=== PATIENT | male | born 1960 | race Two or more races ===

== ENCOUNTER 2020-12-21 15:23 | Inpatient (IN) | payer BC ==
[~2020-12-21] VITALS: Ht 172.7 cm; Wt 90.9 kg
[2020-12-21] MEDS ORDERED: vancomycin/NS 1 GM ADD-VANTAGE 250 ML IV ONE (19:30)
[2020-12-21] MEDS ORDERED: piperacillin/tazo 3.375gm/50ml 50 ML IV ONE (19:30)
[2020-12-21] MEDS ORDERED: METF500T PO (19:44)
[2020-12-21] MEDS ORDERED: [UNRECOGNIZED DRUG - CODE] PO (19:44)
[2020-12-21] MEDS ORDERED: DAPA5TAB PO (19:44)
[2020-12-21] MEDS ORDERED: BUPR1FIL3 SL (19:44)
[2020-12-21 19:47] LABS: BASOPHILS # (AUTO) 0.1 X10'3 (0-0.2); BASOPHILS % (AUTO) 0.7 % (0-1); EOSINOPHILS # (AUTO) 0.2 X10'3 (0-0.9); EOSINOPHILS % (AUTO) 2.2 % (0-6); HEMATOCRIT 42.8 % (42.0-52.0); HEMOGLOBIN 14.1 g/dl (14.0-17.9); LYMPHOCYTES % (AUTO) 34.3 % (21-51); MEAN CORPUSCULAR HGB CONC 32.9 g/dL (33.0-36.5); MEAN CORPUSCULAR VOLUME 88.1 FL (78-98); MEAN PLATELET VOLUME 9.8 FL (7.4-10.4); MONOCYTES # (AUTO) 0.6 X10'3 (0-0.9); MONOCYTES % (AUTO) 7.2 % (2-12); NEUTROPHILS # (AUTO) 4.8 X10'3 (1.8-7.7); NEUTROPHILS % (AUTO) 55.6 % (42-75); PLATELET COUNT 133 X10'3 (140-440); RED BLOOD COUNT 4.86 X10'6 (4.70-6.10); RED CELL DISTRIBUTION WIDTH 13.1 % (11.5-14.5); WHITE BLOOD COUNT 8.7 X10'3 (4.5-11.0)
[2020-12-21 19:48] LABS: ALANINE AMINOTRANSFERASE 24 U/L (12-78); ALBUMIN 3.7 G/DL (3.4-5.0); ALBUMIN/GLOBULIN RATIO 0.8 (1.1-1.5); ALKALINE PHOSPHATASE 130 IU/L (46-116); ANION GAP 8 (8-16); ASPARTATE AMINO TRANSFERASE 15 U/L (10-37); BILIRUBIN,TOTAL 0.6 MG/DL (0.1-1.0); BLOOD UREA NITROGEN 16 MG/DL (7-18); BUN/CREATININE RATIO 19.8 (5.4-32.0); CALCIUM 9.4 MG/DL (8.5-10.1); CHLORIDE 102 MMOL/L (99-107); CREATININE 0.81 MG/DL (0.60-1.10); GLUCOSE 135 MG/DL (70-104); MAGNESIUM 2.2 MG/DL (1.5-2.4); POTASSIUM 3.6 MMOL/L (3.5-5.1); SODIUM 139 MMOL/L (135-145); TOTAL CARBON DIOXIDE 29.1 MMOL/L (24-32); TOTAL PROTEIN 8.6 G/DL (6.4-8.2); eGFR > 90 ML/MIN
--- NOTE | 2020-12-21 19:51 | NUR ---
Pt hungry and thirsty, Dr Patiño states he can eat and drink. Gave him a liter of ice water to BS and a sandwich and low fat milk carton.
--- NOTE | 2020-12-21 21:50 | NUR ---
PATIENT'S 10 YEAR OLD DAUGHTER IS AT BEDSIDE AND CAME TO THE ER WITH HER FATHER THE PATIENT. THE PATIENT RECENTLY MOVED UP TO [place] ABOUT 2 WEEKS AGO. THE DAUGHTER'S MOTHER LIVES IN [place] BUT HER MOTHER JUST FLEW TO [place] TO BE WITH HER MOTHER GUERDA FROM CANCER. THE DAUGHTER'S SISTER LIVES IN [place] BUT DOES NOT HAVE A CAR. 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
--- NOTE | 2020-12-21 23:45 | NUR ---
Pt has been doing well. No c/o anything. His sister will be here around 2-3 to take his daughter home.
[2020-12-21 23:58] LABS: CLARITY,URINE CLEAR (Clear); COLOR,URINE YELLOW (Yellow); GLUCOSE, URINE 500 mg/dl (Neg); KETONES,URINE NEGATIVE (Neg); LEUKOCYTE ESTERASE ,URINE NEGATIVE (Neg); NITRITES, URINE NEGATIVE (Neg); OCCULT BLOOD,URINE TRACE-INTACT (Neg); PH,URINE 6.5 (4.8-8.0); PROTEIN,URINE NEGATIVE (Neg)
[2020-12-22 00:02] LABS: UA COLLECTION TYPE VOIDED
[2020-12-22 00:05] LABS: BACTERIA,URINE NONE SEEN /HPF (Neg); RBC,URINE 0-2 /HPF (0-2); WBC,URINE NONE SEEN /HPF (0-4)
[2020-12-22 00:06] LABS: SQUAMOUS EPITHELIAL CELL,UR NONE SEEN /LPF (FEW)
[2020-12-22] MEDS ORDERED: morphine 2 MG/ML inj. syringe IV PRN ×2 (00:30)
[2020-12-22] MEDS ORDERED: mag hydrox/Alum hydrox/simeth 30ml oral suspension PO PRN (00:30)
[2020-12-22] MEDS ORDERED: acetaminophen 325mg tablet PO PRN (00:30)
[2020-12-22] MEDS ORDERED: magnesium hydroxide 30ml (MOM) UD suspension PO PRN (00:30)
[2020-12-22] MEDS ORDERED: ondansetron/PF 4mg/2ml inj IV PRN (00:30)
[2020-12-22] MEDS ORDERED: potassium Cl 40MEQ/1/2NS 520ml 520 ML IV PRN ×2 (00:30)
[2020-12-22] MEDS ORDERED: potassium Cl 20 mEq SR tablet PO PRN ×2 (00:30)
[2020-12-22] MEDS ORDERED: insulin Lispro (HumaLOG) vial - multi-dose SQ SCH (00:35)
[2020-12-22] MEDS ORDERED: MESSAGE TO PHARMACY PO ONE (00:35)
[2020-12-22] MEDS ORDERED: dextrose 50%-water 50ml dispensing syringe IV PRN ×2 (00:35)
[2020-12-22] MEDS ORDERED: glucagon, human recombinant 1mg kit SUBCUT PRN (00:35)
[2020-12-22] MEDS ORDERED: dextrose ORAL solution 15 GM/59 ML bottle PO PRN ×2 (00:35)
[2020-12-22 01:42] LABS: HEMOGLOBIN A1C 7.8 % (4.5-6.2)
--- NOTE | 2020-12-22 02:30 | NUR ---
FAMILY HERE TO GET CHILD.
--- NOTE | 2020-12-22 03:38 | NUR ---
PT CURRENTLY ASLEEP
--- NOTE | 2020-12-22 06:04 | NUR ---
PT SLEEPING, WILL ALLOW HIM TO SLEEP. RR 16
[2020-12-22] MEDS ORDERED: K and/or MAG REPLACEMENT MC SCH (08:00)
[2020-12-22] MEDS ORDERED: buprenorphine/naloxone 8MG-2MG SUBlingual film SL SCH (08:00)
[2020-12-22] MEDS: heparin, porcine 5000 units/ml vial SQ SCH ×3 (08:04→21:49)
[2020-12-22] MEDS: piperacillin/tazo 3.375gm/50ml 50 ML IV SCH ×2 (08:05→16:01)
[2020-12-22] MEDS: buprenorphine/naloxone 8MG-2MG SUBlingual film SL SCH (08:17)
--- NOTE | 2020-12-22 08:17 | NUR ---
pharmacy to change supboxone order as currently reflects 1.5 film. Unable to cut film. Tablets to be replaced by film. film being returned
[2020-12-22] MEDS: buprenorphine/naloxone 2-0.5mg sublingual tablet SL SCH (08:26)
[2020-12-22 09:16] LABS: BASOPHILS # (AUTO) 0.1 X10'3 (0-0.2); BASOPHILS % (AUTO) 0.8 % (0-1); EOSINOPHILS # (AUTO) 0.2 X10'3 (0-0.9); EOSINOPHILS % (AUTO) 2.7 % (0-6); HEMATOCRIT 40.8 % (42.0-52.0); HEMOGLOBIN 13.5 g/dl (14.0-17.9); LYMPHOCYTES # (AUTO) 1.9 X10'3 (1.1-4.8); LYMPHOCYTES % (AUTO) 26.4 % (21-51); MEAN CORPUSCULAR HEMOGLOBIN 29.5 PG (27.0-31.0); MEAN CORPUSCULAR HGB CONC 33.1 g/dL (33.0-36.5); MEAN CORPUSCULAR VOLUME 88.9 FL (78-98); MEAN PLATELET VOLUME 9.3 FL (7.4-10.4); MONOCYTES # (AUTO) 0.6 X10'3 (0-0.9); MONOCYTES % (AUTO) 8.3 % (2-12); NEUTROPHILS # (AUTO) 4.4 X10'3 (1.8-7.7); NEUTROPHILS % (AUTO) 61.8 % (42-75); PLATELET COUNT 121 X10'3 (140-440); RED BLOOD COUNT 4.59 X10'6 (4.70-6.10); RED CELL DISTRIBUTION WIDTH 13.7 % (11.5-14.5); WHITE BLOOD COUNT 7.2 X10'3 (4.5-11.0)
[2020-12-22 09:30] LABS: ALANINE AMINOTRANSFERASE 23 U/L (12-78); ALBUMIN 3.2 G/DL (3.4-5.0); ALBUMIN/GLOBULIN RATIO 0.7 (1.1-1.5); ALKALINE PHOSPHATASE 113 IU/L (46-116); ANION GAP 2 (8-16); ASPARTATE AMINO TRANSFERASE 15 U/L (10-37); BILIRUBIN,TOTAL 0.6 MG/DL (0.1-1.0); BLOOD UREA NITROGEN 17 MG/DL (7-18); CALCIUM 9.1 MG/DL (8.5-10.1); CHLORIDE 104 MMOL/L (99-107); CREATININE 0.85 MG/DL (0.60-1.10); GLUCOSE 173 MG/DL (70-104); POTASSIUM 4.1 MMOL/L (3.5-5.1); SODIUM 134 MMOL/L (135-145); TOTAL PROTEIN 7.5 G/DL (6.4-8.2); eGFR > 90 ML/MIN
[2020-12-22] MEDS: VANCOmycin 1250MG/NS 250ml Bag 250 ML IV SCH ×2 (09:38→21:40)
--- NOTE | 2020-12-22 13:30 | NUR ---
ORTHOPEDIST IN TO SPEAK WITH PT
--- NOTE | 2020-12-22 19:22 | NUR ---
1835 Rc'd verbal report from [facility] ED. RN and assumed care of patient when he arrived and placed into 4016. Patient is alert and oriented x4, ambulates without assist and denies pain at this time. vital signs stable and patient oriented to room and call light system.
[2020-12-22 19:30] VITALS: BP 122/71
[2020-12-22] MEDS ORDERED: insulin glargine (Lantus) pen - multi-dose SQ SCH (21:00)
[2020-12-22] MEDS: lactobacillus rhamnosus 10,000 MMU CELLS/CAPSULE PO SCH (21:48)
[2020-12-23] VITALS (8 sets, daily range): BP systolic 96–110; BP diastolic 53–60
[2020-12-23] MEDS: piperacillin/tazo 3.375gm/50ml 50 ML IV SCH ×2 (00:26→08:00)
[2020-12-23 05:40] LABS: ALANINE AMINOTRANSFERASE 21 U/L (12-78); ALBUMIN 2.9 G/DL (3.4-5.0); ALBUMIN/GLOBULIN RATIO 0.7 (1.1-1.5); ALKALINE PHOSPHATASE 100 IU/L (46-116); ANION GAP 8 (8-16); ASPARTATE AMINO TRANSFERASE 14 U/L (10-37); BILIRUBIN,TOTAL 0.4 MG/DL (0.1-1.0); BLOOD UREA NITROGEN 19 MG/DL (7-18); BUN/CREATININE RATIO 21.3 (5.4-32.0); CHLORIDE 106 MMOL/L (99-107); CREATININE 0.89 MG/DL (0.60-1.10); GLUCOSE 141 MG/DL (70-104); POTASSIUM 4.1 MMOL/L (3.5-5.1); SODIUM 141 MMOL/L (135-145); TOTAL CARBON DIOXIDE 27.3 MMOL/L (24-32); TOTAL PROTEIN 7.1 G/DL (6.4-8.2); eGFR 87 ML/MIN
[2020-12-23 05:46] LABS: BASOPHILS # (AUTO) 0.1 X10'3 (0-0.2); EOSINOPHILS # (AUTO) 0.2 X10'3 (0-0.9); EOSINOPHILS % (AUTO) 3.7 % (0-6); HEMATOCRIT 38.4 % (42.0-52.0); HEMOGLOBIN 12.7 g/dl (14.0-17.9); LYMPHOCYTES # (AUTO) 2.2 X10'3 (1.1-4.8); LYMPHOCYTES % (AUTO) 34.2 % (21-51); MEAN CORPUSCULAR HEMOGLOBIN 29.5 PG (27.0-31.0); MEAN CORPUSCULAR HGB CONC 33.1 g/dL (33.0-36.5); MEAN CORPUSCULAR VOLUME 89.2 FL (78-98); MEAN PLATELET VOLUME 9.9 FL (7.4-10.4); MONOCYTES # (AUTO) 0.5 X10'3 (0-0.9); MONOCYTES % (AUTO) 7.7 % (2-12); NEUTROPHILS # (AUTO) 3.4 X10'3 (1.8-7.7); NEUTROPHILS % (AUTO) 53.4 % (42-75); PLATELET COUNT 119 X10'3 (140-440); RED CELL DISTRIBUTION WIDTH 13.6 % (11.5-14.5); WHITE BLOOD COUNT 6.4 X10'3 (4.5-11.0)
--- NOTE | 2020-12-23 06:29 | NUR ---
Problems reprioritized. Patient report given, questions answered & plan of care reviewed with early shift RN.
--- NOTE | 2020-12-23 06:45 | NUR ---
Patient in room ORTHO 4016. I have received report from ALEXIS SANTANA and had the opportunity to ask questions and assume patient care.
[2020-12-23] MEDS ORDERED: BUPIVAcaine/PF 2.5 mg/ml (0.25%) 30ml vial ONE (07:26)
--- NOTE | 2020-12-23 07:55 | NUR ---
ATTEMPTED TO CALL REPORT TO RECOVERY
[2020-12-23] MEDS ORDERED: ketamine 50mg/5ml syringe ONE (07:58)
[2020-12-23] MEDS ORDERED: fentaNYL/PF 50MCG/1 ML 2ML syringe ONE (07:59)
[2020-12-23] MEDS: heparin, porcine 5000 units/ml vial SQ SCH (08:00)
[2020-12-23] MEDS ORDERED: MIDAZolam 1 MG/ML 5ML VIAL ONE (08:00)
[2020-12-23] MEDS: lactobacillus rhamnosus 10,000 MMU CELLS/CAPSULE PO SCH (08:00)
--- NOTE | 2020-12-23 08:29 | NUR ---
Received from OR via BED, accompanied by Anesthesiologist DR OCHOA and report given by Anesthesiologist. PT DROWSY, DENIES PAIN, LEFT FOOT W/SLADE WRAP COVERING INCISION/DRSG CDI. Addendum: 12/23/20 at 0904 by Racquel Samano RN Amended: Links added.
[2020-12-23] MEDS ORDERED: morphine 2 MG/ML inj. syringe IV PRN (08:30)
[2020-12-23] MEDS ORDERED: proCHLORperazine 10 MG/2 ml inj IV PRN (08:30)
[2020-12-23] MEDS ORDERED: morphine 4 MG/ML inj SYRINge IV PRN (08:30)
[2020-12-23] MEDS ORDERED: meperidine/PF 25mg/ml syringe IV PRN ×3 (08:30)
[2020-12-23] MEDS ORDERED: ondansetron/PF 4mg/2ml inj IV PRN (08:30)
[2020-12-23] MEDS ORDERED: ringers solution, lacted 1,000 ML IV SCH (08:30)
[2020-12-23] MEDS ORDERED: propofol inj 20 ML IV ONE (08:31)
[2020-12-23] MEDS ORDERED: LIDOcaine 1%/PF 5ML 10 MG/ML VIAL ONE (08:31)
[2020-12-23] MEDS: VANCOmycin 1250MG/NS 250ml Bag 250 ML IV SCH (09:00)
--- NOTE | 2020-12-23 09:15 | NUR ---
Patient in room ORTHO 4016. I have received report from ALEXIS ELDRIDGE IN RECOVERY and had the opportunity to ask questions and assume patient care.
--- NOTE | 2020-12-23 09:29 | NUR ---
Report called to receiving nurse. Transferred via BED, GLASSES ONLY Belongings SENT W/PT TO ROOM [facility]. BLL, CALL LIGHT GIVEN, SIDE RAILS UP X 2, RECEIVING RN AT BEDSIDE TO RECEIVE PT. Special Issues communicated to receiving nurse. YES. Addendum: 12/23/20 at 0954 by Racquel Samano RN Amended: Links added.
[2020-12-23] MEDS ORDERED: AMOX-580 PO (10:56)
[2020-12-23] MEDS: buprenorphine/naloxone 2-0.5mg sublingual tablet SL SCH (12:30)
[2020-12-23] MEDS: buprenorphine/naloxone 8MG-2MG SUBlingual film SL SCH (12:30)
--- NOTE | 2020-12-23 12:45 | NUR ---
PATIENT STABLE AND APPROPRIATE FOR DISCHARGE, IV TAKEN OUT, EDUCATION GIVEN, NEW MEDS E-SCRIPTED TO PREFERRED PHARMACY, ALL BELONGINGS SENT WITH PATIENT, PATIENT TAKEN TO LOBBY BY WHEELCHAIR WHERE FAMILY MEMBER WILL TAKE PATIENT HOME
--- NOTE | 2020-12-23 13:03 | NUR ---
DM consult: Pt with A1c 7.8% seen at bedside for written and verbal DM education. Pt reports taking his meds per rx however hasn't been checking his blood sugars d/t being out of test strips r/t insurance purposes. RD informed pt of [facility] glucometer until able to get appropriate equipment through insurance. 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 All of patient's questions were answered at this time. RD contact information provided. Will remain available. Addendum: 12/23/20 at [address] Amended: Links added.
[2020-12-23] MEDS ORDERED: VANCOMYCIN LEVEL IV ONE (20:30)
[2020-12-24 06:00] VITALS: BP 104/53
== END 2020-12-23 12:57 | disposition home health service (06) | DRG 617 ==
LOC: ER 15:24 → ED HOLD 12-22 00:30 → ORTHO 4S 12-22 19:06
PROVIDERS: ADMIT Internal Medicine; ATTEND Internal Medicine
PROC: 0Y6U0Z3 Detachment at Left 3rd Toe, Low, Open Approach (ICD-10-PCS; principal; 2020-12-23 08:00)
DX: E11.69 Type 2 diabetes mellitus with other specified complication (principal); M86.172 Other acute osteomyelitis, left ankle and foot; E11.40 Type 2 diabetes mellitus with diabetic neuropathy, unspecified; F17.200 Nicotine dependence, unspecified, uncomplicated; E11.319 Type 2 diabetes mellitus with unspecified diabetic retinopathy without macular edema; Z88.8 Allergy status to other drugs, medicaments and biological substances; E11.65 Type 2 diabetes mellitus with hyperglycemia; L08.9 Local infection of the skin and subcutaneous tissue, unspecified; Z20.822 Contact with and (suspected) exposure to COVID-19
CPT/HCPCS: 36415; 71045; 73660; 80053; 81001; 81003; 82948; 83036; 83605; 83735; 84145; 85025; 87040; 87081; 87635; 93005; 96365; 99285; A6222; A6449; A7000; G0378; J1644; J1815; J2250; J2543; J2704; J3010; J3370; J3490; J7120

== ENCOUNTER 2021-02-12 00:32 | Inpatient (IN) | payer BC, MEDICAID ==
[~2021-02-12] VITALS: Ht 172.7 cm; Wt 87.0 kg
[~2021-02-12 00:32] MED LIST: BUPR1FIL3 SL; DAPA5TAB PO; METF500T PO; [UNRECOGNIZED DRUG - CODE] PO
[2021-02-12 03:05] LABS: BASOPHILS # (AUTO) 0.1 X10'3 (0-0.2); BASOPHILS % (AUTO) 0.7 % (0-1); EOSINOPHILS # (AUTO) 0.2 X10'3 (0-0.9); EOSINOPHILS % (AUTO) 1.8 % (0-6); HEMATOCRIT 38.6 % (42.0-52.0); HEMOGLOBIN 12.8 g/dl (14.0-17.9); MEAN CORPUSCULAR HGB CONC 33.1 g/dL (33.0-36.5); MEAN CORPUSCULAR VOLUME 90.6 FL (78-98); MEAN PLATELET VOLUME 10.6 FL (7.4-10.4); MONOCYTES # (AUTO) 0.8 X10'3 (0-0.9); MONOCYTES % (AUTO) 8.7 % (2-12); NEUTROPHILS # (AUTO) 5.8 X10'3 (1.8-7.7); NEUTROPHILS % (AUTO) 65.8 % (42-75); PLATELET COUNT 115 X10'3 (140-440); RED BLOOD COUNT 4.26 X10'6 (4.70-6.10); RED CELL DISTRIBUTION WIDTH 13.7 % (11.5-14.5); WHITE BLOOD COUNT 8.8 X10'3 (4.5-11.0)
[2021-02-12 03:13] LABS: ALBUMIN 3.3 G/DL (3.4-5.0); ANION GAP 9 (8-16); BLOOD UREA NITROGEN 20 MG/DL (7-18); BUN/CREATININE RATIO 25.6 (5.4-32.0); CALCIUM 8.6 MG/DL (8.5-10.1); CHLORIDE 104 MMOL/L (99-107); CREATININE 0.78 MG/DL (0.60-1.10); GLUCOSE 178 MG/DL (70-104); POTASSIUM 3.5 MMOL/L (3.5-5.1); SODIUM 138 MMOL/L (135-145); TOTAL CARBON DIOXIDE 25.5 MMOL/L (24-32); eGFR > 90 ML/MIN
[2021-02-12] MEDS ORDERED: CefTRIAXone/D5W-Rocephin 1gm 50 ML IV ONE (03:55)
[2021-02-12] MEDS ORDERED: VANCOMYCIN 1,500MG inj. 1,500 MG in normal saline 250ml IV soln 300 ML IV ONE (04:12)
[2021-02-12] MEDS ORDERED: dextrose ORAL solution 15 GM/59 ML bottle PO PRN ×2 (04:25)
[2021-02-12] MEDS ORDERED: magnesium hydroxide 30ml (MOM) UD suspension PO PRN (04:25)
[2021-02-12] MEDS ORDERED: insulin Lispro (HumaLOG) vial - multi-dose SQ SCH (04:25)
[2021-02-12] MEDS ORDERED: dextrose 50%-water 50ml dispensing syringe IV PRN ×2 (04:25)
[2021-02-12] MEDS ORDERED: MESSAGE TO PHARMACY PO ONE (04:25)
[2021-02-12] MEDS ORDERED: glucagon, human recombinant 1mg kit SUBCUT PRN (04:25)
[2021-02-12] MEDS ORDERED: ondansetron/PF 4mg/2ml inj IV PRN (04:25)
[2021-02-12] MEDS ORDERED: mag hydrox/Alum hydrox/simeth 30ml oral suspension PO PRN (04:25)
[2021-02-12] MEDS ORDERED: potassium Cl 40MEQ/1/2NS 520ml 520 ML IV PRN ×2 (04:25)
[2021-02-12] MEDS ORDERED: magnesium 2GM in 50ml NS 50 ML IV PRN (04:25)
[2021-02-12] MEDS ORDERED: potassium Cl 20 mEq SR tablet PO PRN ×2 (04:25)
[2021-02-12] MEDS ORDERED: acetaminophen 325mg tablet PO PRN ×2 (04:25)
[2021-02-12] MEDS ORDERED: magnesium 4gm in 100ml NS 100 ML IV PRN (04:25)
[2021-02-12] MEDS: normal saline 1000ml 1,000 ML IV SCH ×2 (05:37→15:37)
--- NOTE | 2021-02-12 05:53 | NUR ---
Pt resting comfortably. NO s/sx of acute distress. Provided with coffee. ABX running.
[2021-02-12] MEDS: buprenorphine/naloxone 8MG-2MG SUBlingual film SL SCH (07:59)
[2021-02-12] MEDS: nicotine 7mg patch - 24hr TD SCH (07:59)
[2021-02-12] MEDS: K and/or MAG REPLACEMENT MC SCH ×2 (08:00→19:50)
[2021-02-12] MEDS ORDERED: buprenorphine/naloxone 8MG-2MG SUBlingual film SL SCH (08:00)
[2021-02-12] MEDS ORDERED: buprenorphine/naloxone 2-0.5mg sublingual tablet SL SCH (08:00)
--- NOTE | 2021-02-12 08:32 | NUR ---
Report attempted, ALEXIS Zayas to call back.
[2021-02-12 09:28] VITALS: BP 121/41
[2021-02-12] MEDS: piperacillin/tazo 4.5gm/100ml 100 ML IV SCH ×2 (09:53→16:26)
[2021-02-12 12:00] VITALS: BP_SYST 100; BP_SYST 112; BP_DIAS 55; BP_DIAS 64
[2021-02-12] MEDS: buprenorphine/naloxone 2-0.5mg sublingual tablet SL SCH (15:32)
[2021-02-12] MEDS: VANCOmycin 1250MG/NS 250ml Bag 250 ML IV SCH (17:54)
--- NOTE | 2021-02-12 18:37 | NUR ---
Problems reprioritized. Patient report given, questions answered & plan of care reviewed with Penny ESPINOZA.
--- NOTE | 2021-02-12 18:59 | NUR ---
Patient in room [facility] 340. I have received report from Marquez ESPINOZA and had the opportunity to ask questions and assume patient care.
[2021-02-12] MEDS: lactobacillus rhamnosus 10,000 MMU CELLS/CAPSULE PO SCH (19:58)
[2021-02-12 20:00] VITALS: BP 113/59
[2021-02-12] MEDS: enoxaparin 40mg/0.4ml syringe SQ SCH (20:00)
[2021-02-12] MEDS: insulin glargine (Lantus) pen - multi-dose SQ SCH (21:00)
[2021-02-12 23:37] VITALS: BP 109/60
[2021-02-13] VITALS (14 sets, daily range): BP systolic 119–150; BP diastolic 60–80
[2021-02-13] MEDS: piperacillin/tazo 4.5gm/100ml 100 ML IV SCH ×3 (00:04→17:05)
[2021-02-13] MEDS: normal saline 1000ml 1,000 ML IV SCH ×3 (00:25→20:25)
[2021-02-13] MEDS: VANCOmycin 1250MG/NS 250ml Bag 250 ML IV SCH ×2 (04:50→19:05)
[2021-02-13 06:00] LABS: BASOPHILS % (AUTO) 0.6 % (0-1); EOSINOPHILS # (AUTO) 0.2 X10'3 (0-0.9); EOSINOPHILS % (AUTO) 3.6 % (0-6); HEMATOCRIT 37.8 % (42.0-52.0); HEMOGLOBIN 12.5 g/dl (14.0-17.9); LYMPHOCYTES # (AUTO) 1.6 X10'3 (1.1-4.8); LYMPHOCYTES % (AUTO) 25.1 % (21-51); MEAN CORPUSCULAR HEMOGLOBIN 30.1 PG (27.0-31.0); MEAN CORPUSCULAR HGB CONC 33.2 g/dL (33.0-36.5); MEAN CORPUSCULAR VOLUME 90.6 FL (78-98); MEAN PLATELET VOLUME 10.4 FL (7.4-10.4); MONOCYTES # (AUTO) 0.5 X10'3 (0-0.9); MONOCYTES % (AUTO) 7.6 % (2-12); NEUTROPHILS # (AUTO) 3.9 X10'3 (1.8-7.7); NEUTROPHILS % (AUTO) 63.1 % (42-75); PLATELET COUNT 116 X10'3 (140-440); RED BLOOD COUNT 4.17 X10'6 (4.70-6.10); RED CELL DISTRIBUTION WIDTH 13.5 % (11.5-14.5); WHITE BLOOD COUNT 6.2 X10'3 (4.5-11.0)
[2021-02-13 06:14] LABS: ALANINE AMINOTRANSFERASE 17 U/L (12-78); ALBUMIN 2.9 G/DL (3.4-5.0); ALBUMIN/GLOBULIN RATIO 0.7 (1.1-1.5); ALKALINE PHOSPHATASE 107 IU/L (46-116); ANION GAP 8 (8-16); ASPARTATE AMINO TRANSFERASE 18 U/L (10-37); BILIRUBIN,TOTAL 0.4 MG/DL (0.1-1.0); BLOOD UREA NITROGEN 13 MG/DL (7-18); BUN/CREATININE RATIO 14.8 (5.4-32.0); CALCIUM 8.3 MG/DL (8.5-10.1); CHLORIDE 107 MMOL/L (99-107); CREATININE 0.88 MG/DL (0.60-1.10); GLUCOSE 159 MG/DL (70-104); POTASSIUM 4.1 MMOL/L (3.5-5.1); SODIUM 142 MMOL/L (135-145); TOTAL CARBON DIOXIDE 26.8 MMOL/L (24-32); TOTAL PROTEIN 6.8 G/DL (6.4-8.2); eGFR 89 ML/MIN
--- NOTE | 2021-02-13 06:32 | NUR ---
Problems reprioritized. Patient report given, questions answered & plan of care reviewed with Rola ESPINOZA.
[2021-02-13] MEDS: K and/or MAG REPLACEMENT MC SCH ×2 (08:00→19:01)
[2021-02-13] MEDS ORDERED: famotidine/PF 10 mg/ml inj IV ONE ×2 (08:05→17:05)
[2021-02-13] MEDS: nicotine 7mg patch - 24hr TD SCH (08:08)
[2021-02-13] MEDS: buprenorphine/naloxone 8MG-2MG SUBlingual film SL SCH (08:09)
[2021-02-13] MEDS: lactobacillus rhamnosus 10,000 MMU CELLS/CAPSULE PO SCH ×2 (08:10→19:37)
--- NOTE | 2021-02-13 08:13 | NUR ---
Patient stated he has been vaccinated with 2 doses of Moderna vaccine already. He said he is trying to get hold of somebody to get the vaccine card from home for him
--- NOTE | 2021-02-13 09:23 | NUR ---
Noted pt with A1c 7.5%, down from 7.8% 12/21/20. Pt seen at bedside for written and verbal DM education at previous admit 12/23, contact information provided at that time. No further DM education planned at this time. Will remain available. Addendum: 02/13/21 at [address] Amended: Links added.
[2021-02-13] MEDS: buprenorphine/naloxone 2-0.5mg sublingual tablet SL SCH (14:52)
[2021-02-13] MEDS ORDERED: BUPIVAcaine/PF 2.5 mg/ml (0.25%) 30ml vial ONE (15:50)
[2021-02-13] MEDS ORDERED: VANCOMYCIN LEVEL IV ONE (16:30)
--- NOTE | 2021-02-13 17:46 | NUR ---
Report given over the phone to ALEXIS Morelspray gun repairer helper Room. Patient still has Zosyn IV running at this time and we only have 1 peripheral IV catheter at this time. I am sending the afternoon dose of Vancomycin with patient, it was placed in the chart. I communicated this to Adriel ESPINOZA.
[2021-02-13] MEDS ORDERED: propofol inj 20 ML IV ONE (18:01)
[2021-02-13] MEDS ORDERED: fentaNYL/PF 50MCG/1 ML 2ML syringe ONE (18:01)
[2021-02-13] MEDS ORDERED: midazolam 1 mg/ML 2ml injection ONE (18:01)
[2021-02-13] MEDS ORDERED: sevoflurane 250ml liquid IH ONE (18:02)
[2021-02-13] MEDS ORDERED: piperacillin/tazobactam 3.375gm/50ml bag IV ONE (18:02)
[2021-02-13] MEDS ORDERED: morphine 4 MG/ML inj SYRINge IV PRN (18:30)
[2021-02-13] MEDS ORDERED: meperidine/PF 25mg/ml syringe IV PRN ×3 (18:30)
[2021-02-13] MEDS ORDERED: morphine 2 MG/ML inj. syringe IV PRN (18:30)
[2021-02-13] MEDS ORDERED: proCHLORperazine 10 MG/2 ml inj IV PRN (18:30)
[2021-02-13] MEDS ORDERED: ondansetron/PF 4mg/2ml inj IV PRN (18:30)
[2021-02-13] MEDS ORDERED: ringers solution, lacted 1,000 ML IV SCH (18:30)
--- NOTE | 2021-02-13 18:37 | NUR ---
Patient in room [facility] 340. I have received report from Rola ESPINOZA and had the opportunity to ask questions and assume patient care.
--- NOTE | 2021-02-13 18:40 | NUR ---
Problems reprioritized. Patient report given, questions answered & plan of care reviewed with Penny ESPINOZA.
--- NOTE | 2021-02-13 18:45 | NUR ---
Received from OR via , accompanied by Anesthesiologist and report given by Anesthesiolgist. WAKING UP, C/O OF PAIN, V/S WNL, CSM INTACT, SCD ON, PIV TO RUE AND LEFT FOOT DRESSING CDI .
--- NOTE | 2021-02-13 19:20 | NUR ---
Patient in room [facility] 340. I have received report from Sami ESPINOZA in the recovery room and had the opportunity to ask questions and assume patient care. Pt arrived on the unit in his own bed. He had LR runnng at 100 mls/hr and Vanco running at 166 mls/hr. VSS with no signs of distress. Will continue to monitor.
--- NOTE | 2021-02-13 19:25 | NUR ---
PATIENT A&OX4, C/O INTERMITTENT PAIN AT TIMES, V/S WNL, CSM INTACT, SCD ON, PIV TO RUE AND LEFT FOOT DRESSING CDI .PATIENT TAKEN TO 340A WITH ALL BELONGINGS AND HOOKED UP TO MONITORS IN ROOM AND REPORT GIVEN TO RN WHO HAS TAKEN OVER PATIENT CARE.
[2021-02-13] MEDS: enoxaparin 40mg/0.4ml syringe SQ SCH (19:37)
[2021-02-13] MEDS ORDERED: HYDROcodone/acetaminophen 5mg/325mg tablet PO PRN (20:25)
[2021-02-13] MEDS: insulin glargine (Lantus) pen - multi-dose SQ SCH (21:00)
[2021-02-14] VITALS: BP_SYST 114; BP_SYST 116; BP_DIAS 65; BP_DIAS 86
[2021-02-14] MEDS: HYDROcodone/acetaminophen 10/325mg tab PO PRN ×2 (00:17→04:47)
[2021-02-14] MEDS: piperacillin/tazo 4.5gm/100ml 100 ML IV SCH ×2 (00:18→08:00)
[2021-02-14 01:00] VITALS: BP 101/63
[2021-02-14] MEDS: VANCOmycin 1250MG/NS 250ml Bag 250 ML IV SCH (04:48)
[2021-02-14] MEDS: normal saline 1000ml 1,000 ML IV SCH (04:49)
--- NOTE | 2021-02-14 06:07 | NUR ---
Problems reprioritized. Patient report given, questions answered & plan of care reviewed with Rola ESPINOZA.
[2021-02-14 06:09] LABS: BASOPHILS % (AUTO) 0.8 % (0-1); EOSINOPHILS # (AUTO) 0.2 X10'3 (0-0.9); EOSINOPHILS % (AUTO) 2.6 % (0-6); HEMATOCRIT 36.7 % (42.0-52.0); HEMOGLOBIN 12.2 g/dl (14.0-17.9); LYMPHOCYTES # (AUTO) 1.2 X10'3 (1.1-4.8); LYMPHOCYTES % (AUTO) 20.1 % (21-51); MEAN CORPUSCULAR HGB CONC 33.3 g/dL (33.0-36.5); MEAN PLATELET VOLUME 9.8 FL (7.4-10.4); MONOCYTES # (AUTO) 0.4 X10'3 (0-0.9); MONOCYTES % (AUTO) 7.6 % (2-12); NEUTROPHILS % (AUTO) 68.9 % (42-75); PLATELET COUNT 121 X10'3 (140-440); RED BLOOD COUNT 4.08 X10'6 (4.70-6.10); RED CELL DISTRIBUTION WIDTH 13.4 % (11.5-14.5); WHITE BLOOD COUNT 5.8 X10'3 (4.5-11.0)
[2021-02-14 06:13] LABS: ALANINE AMINOTRANSFERASE 21 U/L (12-78); ALBUMIN 2.7 G/DL (3.4-5.0); ALBUMIN/GLOBULIN RATIO 0.7 (1.1-1.5); ALKALINE PHOSPHATASE 103 IU/L (46-116); ANION GAP 6 (8-16); ASPARTATE AMINO TRANSFERASE 15 U/L (10-37); BILIRUBIN,TOTAL 0.3 MG/DL (0.1-1.0); BLOOD UREA NITROGEN 12 MG/DL (7-18); BUN/CREATININE RATIO 14.5 (5.4-32.0); CALCIUM 8.4 MG/DL (8.5-10.1); CHLORIDE 106 MMOL/L (99-107); CREATININE 0.83 MG/DL (0.60-1.10); GLUCOSE 190 MG/DL (70-104); POTASSIUM 3.7 MMOL/L (3.5-5.1); SODIUM 139 MMOL/L (135-145); TOTAL CARBON DIOXIDE 26.7 MMOL/L (24-32); TOTAL PROTEIN 6.7 G/DL (6.4-8.2); eGFR > 90 ML/MIN
--- NOTE | 2021-02-14 06:32 | NUR ---
Patient in room [facility] 340. I have received report from Penny ESPINOZA and had the opportunity to ask questions and assume patient care.
[2021-02-14 07:00] VITALS: BP 120/57
[2021-02-14] MEDS: lactobacillus rhamnosus 10,000 MMU CELLS/CAPSULE PO SCH (07:59)
[2021-02-14] MEDS: nicotine 7mg patch - 24hr TD SCH (07:59)
[2021-02-14] MEDS: K and/or MAG REPLACEMENT MC SCH (08:00)
[2021-02-14] MEDS: buprenorphine/naloxone 8MG-2MG SUBlingual film SL SCH (08:00)
[2021-02-14 11:00] VITALS: BP 116/57
[2021-02-14] MEDS: buprenorphine/naloxone 2-0.5mg sublingual tablet SL SCH (14:31)
[2021-02-14] MEDS ORDERED: NICO-630 TD (14:48)
[2021-02-14] MEDS ORDERED: LEVO500T89 PO (14:48)
--- NOTE | 2021-02-14 16:07 | NUR ---
Discharge instructions given to patient, patient verbalized understanding of all instructions given to him. Peripheral IV catheter removed, tip intact. New prescriptions were e-sent to [facility] pharmacy per patient request. Negative heel pressure shoe was ordered from [employer] by Felipa, manager of community relations. Instructed patient to ensure he has all his belongings with him before leaving the hospital.
[2021-02-14] MEDS ORDERED: VANCOMYCIN 1,500MG inj. 1,500 MG in normal saline 500ml IV soln 300 ML IV SCH (17:00)
[2021-02-16] MEDS ORDERED: VANCOMYCIN LEVEL IV ONE (04:30)
== END 2021-02-14 16:15 | disposition home or self-care (01) | DRG 314 ==
LOC: ER 00:33 → ED HOLD 04:24 → UNDOADMIN 04:24 → SUR 3N 09:33 → ED HOLD 09:33
PROVIDERS: ADMIT Family Medicine; ATTEND Family Medicine
PROC: 0Y6Q0Z1 Detachment at Left 1st Toe, High, Open Approach (ICD-10-PCS; principal; 2021-02-13 18:08)
DX: E11.69 Type 2 diabetes mellitus with other specified complication (principal); E11.40 Type 2 diabetes mellitus with diabetic neuropathy, unspecified; M86.172 Other acute osteomyelitis, left ankle and foot; E11.65 Type 2 diabetes mellitus with hyperglycemia; E11.621 Type 2 diabetes mellitus with foot ulcer; I10 Essential (primary) hypertension; L03.032 Cellulitis of left toe; F17.210 Nicotine dependence, cigarettes, uncomplicated; L97.529 Non-pressure chronic ulcer of other part of left foot with unspecified severity; Z79.4 Long term (current) use of insulin; Z80.0 Family history of malignant neoplasm of digestive organs; Z83.3 Family history of diabetes mellitus; Z89.422 Acquired absence of other left toe(s); Z89.421 Acquired absence of other right toe(s); Z79.899 Other long term (current) drug therapy; Z71.6 Tobacco abuse counseling
CPT/HCPCS: 36415; 73630; 80048; 80053; 80202; 82948; 83036; 83735; 85025; 85610; 85651; 86140; 87040; 87070; 87075; 87077; 87081; 87186; 93005; 97110; 97116; 97161; 99285; A4618; A6222; A6449; A7000; G0378; J0696; J1650; J1815; J2250; J2270; J2543; J2704; J3010; J3370; J3490; J7030; J7050; J7120

== ENCOUNTER 2021-03-23 15:13 | Emergency (ER) | payer MEDICAID ==
[~2021-03-23] VITALS: Ht 172.7 cm; Wt 86.9 kg
[~2021-03-23 15:13] MED LIST changes: -DAPA5TAB PO; +NICO-630 TD; -[UNRECOGNIZED DRUG - CODE] PO
[2021-03-23 16:10] LABS: BASOPHILS % (AUTO) 0.6 % (0-1); EOSINOPHILS # (AUTO) 0.2 X10'3 (0-0.9); EOSINOPHILS % (AUTO) 2.2 % (0-6); HEMATOCRIT 39.6 % (42.0-52.0); HEMOGLOBIN 13.2 g/dl (14.0-17.9); LYMPHOCYTES % (AUTO) 27.7 % (21-51); MEAN CORPUSCULAR HEMOGLOBIN 30.1 PG (27.0-31.0); MEAN CORPUSCULAR HGB CONC 33.3 g/dL (33.0-36.5); MEAN CORPUSCULAR VOLUME 90.3 FL (78-98); MEAN PLATELET VOLUME 9.7 FL (7.4-10.4); MONOCYTES # (AUTO) 0.4 X10'3 (0-0.9); MONOCYTES % (AUTO) 5.7 % (2-12); NEUTROPHILS # (AUTO) 4.6 X10'3 (1.8-7.7); NEUTROPHILS % (AUTO) 63.8 % (42-75); PLATELET COUNT 115 X10'3 (140-440); RED BLOOD COUNT 4.38 X10'6 (4.70-6.10); RED CELL DISTRIBUTION WIDTH 13.7 % (11.5-14.5); WHITE BLOOD COUNT 7.3 X10'3 (4.5-11.0)
[2021-03-23 16:26] LABS: ALANINE AMINOTRANSFERASE 24 U/L (12-78); ALBUMIN 3.5 G/DL (3.4-5.0); ALBUMIN/GLOBULIN RATIO 0.9 (1.1-1.5); ALKALINE PHOSPHATASE 110 IU/L (46-116); ANION GAP 10 (8-16); ASPARTATE AMINO TRANSFERASE 22 U/L (10-37); BILIRUBIN,TOTAL 0.3 MG/DL (0.1-1.0); BLOOD UREA NITROGEN 22 MG/DL (7-18); C-REACTIVE PROTEIN 2.09 MG/DL (0.0-0.5); CALCIUM 8.7 MG/DL (8.5-10.1); CHLORIDE 106 MMOL/L (99-107); CREATININE 0.88 MG/DL (0.60-1.10); GLUCOSE 159 MG/DL (70-104); POTASSIUM 3.8 MMOL/L (3.5-5.1); SODIUM 143 MMOL/L (135-145); TOTAL CARBON DIOXIDE 27.1 MMOL/L (24-32); TOTAL PROTEIN 7.5 G/DL (6.4-8.2); eGFR 88 ML/MIN
[2021-03-23 17:40] LABS: CLARITY,URINE CLEAR (Clear); COLOR,URINE YELLOW (Yellow); GLUCOSE, URINE NEGATIVE (Neg); KETONES,URINE TRACE mg/dl (Neg); LEUKOCYTE ESTERASE ,URINE NEGATIVE (Neg); NITRITES, URINE NEGATIVE (Neg); OCCULT BLOOD,URINE NEGATIVE (Neg); PROTEIN,URINE NEGATIVE (Neg); UROBILINOGEN,URINE 0.2 E.U/dL (0.2-1.0)
[2021-03-23 17:42] LABS: UA COLLECTION TYPE VOIDED
[2021-03-23] MEDS ORDERED: CLIN-97 PO (18:37)
[2021-03-23 18:54] VITALS: BP 120/63
== END 2021-03-23 18:55 | disposition home or self-care (01) ==
LOC: ER 15:13
DX: S90.121A Contusion of right lesser toe(s) without damage to nail, initial encounter (principal); L03.031 Cellulitis of right toe; L03.032 Cellulitis of left toe; F17.200 Nicotine dependence, unspecified, uncomplicated; Z60.2 Problems related to living alone; Z79.899 Other long term (current) drug therapy; X58.XXXA Exposure to other specified factors, initial encounter; Y93.89 Activity, other specified; Y92.89 Other specified places as the place of occurrence of the external cause; Y99.8 Other external cause status
CPT/HCPCS: 36415; 71045; 73660; 80053; 81003; 83605; 83735; 84145; 85025; 85651; 86140; 87040; 93005; 99285

== ENCOUNTER → 2021-04-16 | Day surgery (SDC) | payer MEDICAID ==
[2021-04-11 16:16] LABS: BASOPHILS % (AUTO) 0.6 % (0-1); EOSINOPHILS # (AUTO) 0.1 X10'3 (0-0.9); EOSINOPHILS % (AUTO) 1.7 % (0-6); LYMPHOCYTES # (AUTO) 1.8 X10'3 (1.1-4.8); LYMPHOCYTES % (AUTO) 23.6 % (21-51); MEAN CORPUSCULAR HEMOGLOBIN 29.3 PG (27.0-31.0); MEAN CORPUSCULAR HGB CONC 33.2 g/dL (33.0-36.5); MEAN CORPUSCULAR VOLUME 88.3 FL (78-98); MEAN PLATELET VOLUME 9.1 FL (7.4-10.4); MONOCYTES # (AUTO) 0.5 X10'3 (0-0.9); MONOCYTES % (AUTO) 6.3 % (2-12); NEUTROPHILS # (AUTO) 5.2 X10'3 (1.8-7.7); NEUTROPHILS % (AUTO) 67.8 % (42-75); PRE OP HEMATOCRIT 40.2 % (42.0-52.0); PRE OP HEMOGLOBIN 13.3 g/dL (14.0-17.9); PRE OP PLATELET COUNT 144 X10'3 (140-440); RED BLOOD COUNT 4.55 X10'6 (4.70-6.10); RED CELL DISTRIBUTION WIDTH 14.2 % (11.5-14.5)
[2021-04-11 16:39] LABS: ALBUMIN 3.5 G/DL (3.4-5.0); ALBUMIN/GLOBULIN RATIO 0.8 (1.1-1.5); ALKALINE PHOSPHATASE 102 IU/L (46-116); BLOOD UREA NITROGEN 19 MG/DL (7-18); BUN/CREATININE RATIO 24.4 (5.4-32.0); CALCIUM 8.8 MG/DL (8.5-10.1); CHLORIDE 106 MMOL/L (99-107); CREATININE 0.78 MG/DL (0.60-1.10); PRE OP ALT 29 U/L (30-65); PRE OP ANION GAP 6 (8-16); PRE OP AST 23 U/L (10-37); PRE OP BILIRUB, TOTAL 0.4 MG/DL (0.0-1.0); PRE OP GLUCOSE 140 MG/DL (70-104); PRE OP POTASSIUM 4.2 MMOL/L (3.4-5.1); PRE OP SODIUM 141 MMOL/L (135-145); TOTAL CARBON DIOXIDE 28.9 MMOL/L (24-32); TOTAL PROTEIN 7.8 G/DL (6.4-8.2); eGFR > 90 ML/MIN
[~2021-04-16] VITALS: Ht 172.7 cm; Wt 88.5 kg
[2021-04-16] VITALS (14 sets, daily range): BP systolic 110–139; BP diastolic 62–79
[~2021-04-16] MED LIST changes: +BUPIVAcaine 0.5% inj/PF 30 ml vial IJ ONE; +LIDOcaine 0.5% (5mg/ml) 50ml vial ONE; +LIDOcaine 2% (20mg/ml) 5ml vial ONE; -METF500T PO; -NICO-630 TD; +ROPIVAcaine 0.5% (5mg/ml) 30ml vial ONE; +acetaminophen 1,000mg/100ml IV 100 ML IV PRN; +cefazolin/dext.iso 2gm/100ml IV ONE; +cloNIDine hcl/PF 100mcg/ml inj ONE; +dexamethasone sod phosphate 4mg/ml inj. ONE; +famotidine 20mg tablet PO ONE; +fentaNYL/PF 50MCG/1 ML 2ML syringe ONE; +hydrALAZINE 20mg/ml inj. IV PRN; +labetalol 20mg/4ml (5mg/ml) syringe IV PRN; +meperidine/PF 25mg/ml syringe IV PRN; +midazolam 1 mg/ML 2ml injection ONE; +morphine 2 MG/ML inj. syringe IV PRN; +morphine 4 MG/ML inj SYRINge IV PRN; +ondansetron/PF 4mg/2ml inj IV PRN; +ondansetron/PF 4mg/2ml inj ONE; +proCHLORperazine 10 MG/2 ml inj IV PRN; +propofol inj 20 ML IV ONE; +ringers solution, lacted 1,000 ML IV SCH; +sevoflurane 250ml liquid IH ONE
--- NOTE | 2021-04-16 10:53 | NUR ---
Received from OR via [facility] IN STABLE CONDITION , accompanied by Anesthesiologist and PROTOTYPE SEWER report given by Abelardo. Addendum: 04/16/21 at 1144 by Thu Willson RN Amended: Links added.
--- NOTE | 2021-04-16 12:33 | NUR ---
PT A&O X 4, DRESSING DRY AND INTACT, PT REPORTS PAIN 0/10. DC INSTRUCTIONS REVIEWED WITH PT. PT VERBALIZED UNDERSTANDING WITH NO FURTHER QUETIONS AT THIS TIME. PT WHEELED OUT IN WHEELCHAIR WITH WAITING FOR PT IN CAR. Addendum: 04/16/21 at 1308 by Kanwal Mccarthy RN, RN Amended: Links added.
== END | disposition home or self-care (01) ==
LOC: PAS 08:02
PROVIDERS: ATTEND Orthopaedic Surgery Hand Surgery
DX: E11.52 Type 2 diabetes mellitus with diabetic peripheral angiopathy with gangrene (principal); I96 Gangrene, not elsewhere classified; G89.18 Other acute postprocedural pain; F17.210 Nicotine dependence, cigarettes, uncomplicated; Z98.890 Other specified postprocedural states; Z79.899 Other long term (current) drug therapy; Z79.84 Long term (current) use of oral hypoglycemic drugs
CPT/HCPCS: 28825; 36415; 64445; 76942; 80053; 82948; 85025; A6222; J0735; J1100; J2001; J2250; J2405; J2704; J3010; J7120; A4618; A6446; A6449; A7000; J2795

== ENCOUNTER 2022-12-22 12:51 | Inpatient (IN) | payer MEDICAID ==
[~2022-12-22] VITALS: Ht 172.7 cm; Wt 90.0 kg
[~2022-12-22 12:51] MED LIST changes: -BUPIVAcaine 0.5% inj/PF 30 ml vial IJ ONE; -LIDOcaine 0.5% (5mg/ml) 50ml vial ONE; -LIDOcaine 2% (20mg/ml) 5ml vial ONE; -ROPIVAcaine 0.5% (5mg/ml) 30ml vial ONE; -acetaminophen 1,000mg/100ml IV 100 ML IV PRN; -cefazolin/dext.iso 2gm/100ml IV ONE; -cloNIDine hcl/PF 100mcg/ml inj ONE; -dexamethasone sod phosphate 4mg/ml inj. ONE; -famotidine 20mg tablet PO ONE; -fentaNYL/PF 50MCG/1 ML 2ML syringe ONE; -hydrALAZINE 20mg/ml inj. IV PRN; -labetalol 20mg/4ml (5mg/ml) syringe IV PRN; -meperidine/PF 25mg/ml syringe IV PRN; -midazolam 1 mg/ML 2ml injection ONE; -morphine 2 MG/ML inj. syringe IV PRN; -morphine 4 MG/ML inj SYRINge IV PRN; -ondansetron/PF 4mg/2ml inj IV PRN; -ondansetron/PF 4mg/2ml inj ONE; -proCHLORperazine 10 MG/2 ml inj IV PRN; -propofol inj 20 ML IV ONE; -ringers solution, lacted 1,000 ML IV SCH; -sevoflurane 250ml liquid IH ONE
[2022-12-22 14:37] LABS: BASOPHILS % (AUTO) 0.1 % (0-1); EOSINOPHILS % (AUTO) 0 % (0-6); HEMATOCRIT 45.6 % (42.0-52.0); HEMOGLOBIN 15.4 g/dl (14.0-17.9); LYMPHOCYTES # (AUTO) 1.4 X10'3 (1.1-4.8); LYMPHOCYTES % (AUTO) 9.4 % (21-51); MEAN CORPUSCULAR HEMOGLOBIN 30.3 PG (27.0-31.0); MEAN CORPUSCULAR HGB CONC 33.7 g/dL (33.0-36.5); MEAN CORPUSCULAR VOLUME 89.9 FL (78-98); MEAN PLATELET VOLUME 10.6 FL (7.4-10.4); MONOCYTES # (AUTO) 1.1 X10'3 (0-0.9); MONOCYTES % (AUTO) 7.4 % (2-12); NEUTROPHILS # (AUTO) 11.9 X10'3 (1.8-7.7); NEUTROPHILS % (AUTO) 83.1 % (42-75); PLATELET COUNT 91 X10'3 (140-440); RED BLOOD COUNT 5.07 X10'6 (4.70-6.10); RED CELL DISTRIBUTION WIDTH 13.5 % (11.5-14.5); WHITE BLOOD COUNT 14.3 X10'3 (4.5-11.0)
[2022-12-22 14:52] LABS: ALANINE AMINOTRANSFERASE 16 U/L (12-78); ALBUMIN 3.2 G/DL (3.4-5.0); ALBUMIN/GLOBULIN RATIO 0.7 (1.1-1.5); ALKALINE PHOSPHATASE 104 IU/L (46-116); ANION GAP 9 (8-16); ASPARTATE AMINO TRANSFERASE 17 U/L (10-37); BILIRUBIN,TOTAL 1.2 MG/DL (0.1-1.0); BLOOD UREA NITROGEN 42 MG/DL (7-18); BUN/CREATININE RATIO 46.7 (5.4-32.0); CALCIUM 9.2 MG/DL (8.5-10.1); CHLORIDE 100 MMOL/L (99-107); GLUCOSE 164 MG/DL (70-104); POTASSIUM 4.2 MMOL/L (3.5-5.1); SODIUM 135 MMOL/L (135-145); TOTAL CARBON DIOXIDE 26.2 MMOL/L (24-32); TOTAL PROTEIN 8.1 G/DL (6.4-8.2); eGFR 86 ML/MIN
[2022-12-22 15:00] LABS: MAGNESIUM 2.3 MG/DL (1.5-2.4)
[2022-12-22 15:02] LABS: LARGE PLATELETS FEW; PLATELET ESTIMATE DECREASED; TOTAL CELLS COUNTED 100
[2022-12-22 15:22] LABS: CLARITY,URINE CLEAR (Clear); COLOR,URINE AMBER (Yellow)
[2022-12-22 15:25] LABS: UA COLLECTION TYPE CLN CATCH MIDSTREAM
[2022-12-22 15:28] LABS: AMORPHOUS URATES 1+; BACTERIA,URINE FEW /HPF (Neg); FINE GRANULAR CAST 0-3 /LPF (NEGATIVE); MUCUS STRANDS MANY /LPF (Neg); SQUAMOUS EPITHELIAL CELL,UR FEW /LPF (FEW); WBC,URINE 0-4 /HPF (0-4)
[2022-12-22] MEDS ORDERED: ampicillin/sulbac 3gm/NS 100ml 100 ML IV ONE (15:45)
[2022-12-22] MEDS ORDERED: azithromycin 250mg tablet PO ONE (15:45)
[2022-12-22] MEDS ORDERED: azithromycin 250mg tablet PO SCH (15:45)
[2022-12-22] MEDS ORDERED: mag hydrox/Alum hydrox/simeth 30ml oral suspension PO PRN (16:10)
[2022-12-22] MEDS ORDERED: HYDROmorphone inj. 0.5 MG/0.5 ML DISP.SYRIN IV PRN (16:10)
[2022-12-22] MEDS ORDERED: acetaminophen 325mg tablet PO PRN ×2 (16:10)
[2022-12-22] MEDS ORDERED: HYDROcodone/acetaminophen 5mg/325mg tablet PO PRN (16:10)
[2022-12-22] MEDS ORDERED: magnesium Cl slow-release 64mg tablet PO PRN (16:10)
[2022-12-22] MEDS ORDERED: MESSAGE TO PHARMACY PO ONE (16:10)
[2022-12-22] MEDS ORDERED: ondansetron/PF 4mg/2ml inj IV PRN (16:10)
[2022-12-22] MEDS ORDERED: acetaminophen 650mg rectal suppository RC PRN (16:10)
[2022-12-22] MEDS ORDERED: glucagon, human recombinant 1mg kit SUBCUT PRN (16:10)
[2022-12-22] MEDS ORDERED: DEXTROSE 15 GM of carb/4 tabs (each vial/BOTTLE has 4 tablets) PO PRN ×2 (16:10)
[2022-12-22] MEDS ORDERED: ondansetron 4mg rapidly disintigrating tab PO PRN (16:10)
[2022-12-22] MEDS ORDERED: HYDROcodone/acetaminophen 10/325mg tab PO PRN (16:10)
[2022-12-22] MEDS ORDERED: magnesium 4gm in 100ml NS 100 ML IV PRN (16:10)
[2022-12-22] MEDS ORDERED: insulin Lispro (HumaLOG) vial - multi-dose SQ SCH (16:10)
[2022-12-22] MEDS ORDERED: HYDROmorphone/PF 0.2 MG/ML SYRINGE IV PRN (16:10)
[2022-12-22] MEDS ORDERED: potassium Cl 40MEQ/1/2NS 520ml 520 ML IV PRN (16:10)
[2022-12-22] MEDS ORDERED: albuterol 2.5 MG/3 ML nebule NEB PRN (16:10)
[2022-12-22] MEDS ORDERED: magnesium hydroxide 30ml (MOM) UD suspension PO PRN (16:10)
[2022-12-22] MEDS ORDERED: dextrose 50%-water 50ml dispensing syringe IV PRN ×2 (16:10)
[2022-12-22] MEDS ORDERED: potassium Cl 20 mEq SR tablet PO PRN ×2 (16:10)
[2022-12-22 16:23] LABS: ABG BASE EXCESS -0.8 mmol/L (-2.0-2.0); ABG HCO3 23.5 mmol/L (22.0-26.0); ABG OXYGEN SATURATION 91.7 % (94-97); ALLEN'S TEST POSITIVE; FCOHb 1.3 % (0.0-3.9); FLOW 5 L/min; FMetHb 0.2 % (0.0-1.5); FO2Hb 90.3 % (94-97); PATIENT TEMPERATURE 36.9; TOTAL HEMOGLOBIN 15.9 G/dl (14.0-17.9)
[2022-12-22] MEDS: normal saline 1000ml 1,000 ML IV SCH (16:50)
[2022-12-22] MEDS ORDERED: METF-436 PO (18:29)
[2022-12-22] MEDS ORDERED: HYDR50TA65 PO (18:29)
[2022-12-22] MEDS: docusate sod 100mg capsule PO SCH (20:00)
[2022-12-22] MEDS: K and/or MAG REPLACEMENT MC SCH (20:00)
[2022-12-22] MEDS: ampicill/sulbac 1.5gm/NS 100ml 100 ML IV SCH (20:44)
[2022-12-22] MEDS ORDERED: temazepam 15mg capsule PO PRN (21:00)
[2022-12-22] MEDS: insulin glargine (Lantus) pen - multi-dose SQ SCH (21:00)
[2022-12-22] MEDS: buprenorphine/naloxone 8MG-2MG SUBlingual film SL SCH (21:27)
--- NOTE | 2022-12-22 22:41 | NUR ---
Patient in room ED 2. I have received report from stephani sen and had the opportunity to ask questions and assume patient care.
[2022-12-22 23:15] VITALS: BP 120/72
[2022-12-23] MEDS ORDERED: hydrOXYzine 25 MG tablet PO PRN
[2022-12-23] MEDS: normal saline 1000ml 1,000 ML IV SCH ×3 (00:12→21:16)
[2022-12-23] MEDS: ampicill/sulbac 1.5gm/NS 100ml 100 ML IV SCH ×4 (02:28→19:19)
--- NOTE | 2022-12-23 02:53 | NUR ---
Problems reprioritized. Patient report given, questions answered & plan of care reviewed with beny sen.
--- NOTE | 2022-12-23 03:00 | NUR ---
Patient in room [facility] 340. I have received report from THALIA and had the opportunity to ask questions and assume patient care.
[2022-12-23 06:06] LABS: BASOPHILS % (AUTO) 0.3 % (0-1); EOSINOPHILS % (AUTO) 0.3 % (0-6); HEMATOCRIT 39.7 % (42.0-52.0); LYMPHOCYTES % (AUTO) 20.1 % (21-51); MEAN CORPUSCULAR HEMOGLOBIN 29.7 PG (27.0-31.0); MEAN CORPUSCULAR HGB CONC 32.8 g/dL (33.0-36.5); MEAN CORPUSCULAR VOLUME 90.5 FL (78-98); MONOCYTES # (AUTO) 0.8 X10'3 (0-0.9); MONOCYTES % (AUTO) 8.4 % (2-12); NEUTROPHILS # (AUTO) 7.1 X10'3 (1.8-7.7); NEUTROPHILS % (AUTO) 70.9 % (42-75); PLATELET COUNT 85 X10'3 (140-440); RED BLOOD COUNT 4.38 X10'6 (4.70-6.10); RED CELL DISTRIBUTION WIDTH 13.4 % (11.5-14.5); WHITE BLOOD COUNT 10.1 X10'3 (4.5-11.0)
[2022-12-23 06:18] LABS: ALANINE AMINOTRANSFERASE 21 U/L (12-78); ALBUMIN 2.4 G/DL (3.4-5.0); ALBUMIN/GLOBULIN RATIO 0.6 (1.1-1.5); ALKALINE PHOSPHATASE 83 IU/L (46-116); ANION GAP 6 (8-16); ASPARTATE AMINO TRANSFERASE 27 U/L (10-37); BILIRUBIN,TOTAL 0.6 MG/DL (0.1-1.0); BLOOD UREA NITROGEN 24 MG/DL (7-18); BUN/CREATININE RATIO 39.3 (5.4-32.0); CALCIUM 8.4 MG/DL (8.5-10.1); CHLORIDE 105 MMOL/L (99-107); CREATININE 0.61 MG/DL (0.60-1.10); GLUCOSE 100 MG/DL (70-104); MAGNESIUM 2.3 MG/DL (1.5-2.4); POTASSIUM 3.8 MMOL/L (3.5-5.1); SODIUM 137 MMOL/L (135-145); TOTAL CARBON DIOXIDE 25.8 MMOL/L (24-32); TOTAL PROTEIN 6.4 G/DL (6.4-8.2); eGFR > 90 ML/MIN
--- NOTE | 2022-12-23 06:30 | NUR ---
Problems reprioritized. Patient report given, questions answered & plan of care reviewed with JEWELL.
[2022-12-23 07:00] VITALS: BP 133/60
[2022-12-23] MEDS: enoxaparin 40mg/0.4ml syringe SUBCUT SCH (08:00)
[2022-12-23] MEDS: K and/or MAG REPLACEMENT MC SCH ×2 (08:00→19:13)
[2022-12-23] MEDS: azithromycin/NS 500mg/250ml 250 ML IV SCH (08:51)
[2022-12-23] MEDS: docusate sod 100mg capsule PO SCH ×2 (08:51→19:19)
[2022-12-23] MEDS: buprenorphine/naloxone 8MG-2MG SUBlingual film SL SCH ×3 (08:57→21:09)
[2022-12-23 12:00] VITALS: BP 116/56
[2022-12-23 15:25] LABS: HEMOGLOBIN A1C 8.3 % (4.5-6.2)
[2022-12-23 18:40] VITALS: BP 126/60
[2022-12-23] MEDS: insulin glargine (Lantus) pen - multi-dose SQ SCH (21:00)
[2022-12-24] MEDS: ampicill/sulbac 1.5gm/NS 100ml 100 ML IV SCH ×2 (02:00→07:20)
--- NOTE | 2022-12-24 06:23 | NUR ---
Problems reprioritized. Patient report given, questions answered & plan of care reviewed with JEWELL. Addendum: 12/24/22 at 0623 by Boogie Byrne RN Amended: Links added.
[2022-12-24 07:00] VITALS: BP 122/61
[2022-12-24 07:10] LABS: BASOPHILS % (AUTO) 0.5 % (0-1); EOSINOPHILS # (AUTO) 0.1 X10'3 (0-0.9); EOSINOPHILS % (AUTO) 1.1 % (0-6); HEMATOCRIT 38.8 % (42.0-52.0); LYMPHOCYTES # (AUTO) 1.8 X10'3 (1.1-4.8); LYMPHOCYTES % (AUTO) 23.6 % (21-51); MEAN CORPUSCULAR HEMOGLOBIN 30.6 PG (27.0-31.0); MEAN CORPUSCULAR HGB CONC 33.6 g/dL (33.0-36.5); MEAN PLATELET VOLUME 10.6 FL (7.4-10.4); MONOCYTES # (AUTO) 0.7 X10'3 (0-0.9); MONOCYTES % (AUTO) 9.8 % (2-12); NEUTROPHILS # (AUTO) 4.9 X10'3 (1.8-7.7); PLATELET COUNT 94 X10'3 (140-440); RED BLOOD COUNT 4.26 X10'6 (4.70-6.10); RED CELL DISTRIBUTION WIDTH 13.6 % (11.5-14.5); WHITE BLOOD COUNT 7.5 X10'3 (4.5-11.0)
[2022-12-24] MEDS: azithromycin/NS 500mg/250ml 250 ML IV SCH (07:20)
[2022-12-24 07:21] LABS: ALANINE AMINOTRANSFERASE 77 U/L (12-78); ALBUMIN 2.4 G/DL (3.4-5.0); ALBUMIN/GLOBULIN RATIO 0.6 (1.1-1.5); ALKALINE PHOSPHATASE 94 IU/L (46-116); ANION GAP 5 (8-16); ASPARTATE AMINO TRANSFERASE 80 U/L (10-37); BILIRUBIN,TOTAL 0.4 MG/DL (0.1-1.0); BLOOD UREA NITROGEN 15 MG/DL (7-18); CALCIUM 8.3 MG/DL (8.5-10.1); CHLORIDE 109 MMOL/L (99-107); GLUCOSE 113 MG/DL (70-104); MAGNESIUM 2.1 MG/DL (1.5-2.4); POTASSIUM 4.2 MMOL/L (3.5-5.1); SODIUM 138 MMOL/L (135-145); TOTAL CARBON DIOXIDE 24.2 MMOL/L (24-32); TOTAL PROTEIN 6.3 G/DL (6.4-8.2); eGFR > 90 ML/MIN
[2022-12-24] MEDS: buprenorphine/naloxone 8MG-2MG SUBlingual film SL SCH ×2 (07:22→13:07)
[2022-12-24] MEDS: docusate sod 100mg capsule PO SCH (07:23)
[2022-12-24] MEDS: enoxaparin 40mg/0.4ml syringe SUBCUT SCH (07:37)
[2022-12-24] MEDS: K and/or MAG REPLACEMENT MC SCH (08:00)
[2022-12-24] MEDS: normal saline 1000ml 1,000 ML IV SCH (08:10)
[2022-12-24 09:02] LABS: LARGE PLATELETS FEW; PLATELET ESTIMATE DECREASED
--- NOTE | 2022-12-24 10:29 | NUR ---
Patient did not qualify for AM insulin
[2022-12-24] MEDS ORDERED: LEVO-65 PO (11:40)
[2022-12-24] MEDS ORDERED: METF-436 PO (11:42)
[2022-12-24 12:00] VITALS: BP 131/68
--- NOTE | 2022-12-24 14:11 | NUR ---
Per EMR pt with T2DM, current A1c 8.3%. Pt discharged prior to RD being available for bedside visit. Written DM education with RD contact information mailed to patient's home address found in EMR. Will remain available. Addendum: 12/24/22 at [address] Amended: Links added.
--- NOTE | 2022-12-24 14:35 | NUR ---
Gave d/c instructions, answered all questions satisfactorily, advised of new Rx. Pt verbalized understanding. D/C IV (tip intact), pt endorses has all belongings. Escorted to awaiting family vehicle.
== END 2022-12-24 13:56 | disposition home or self-care (01) | DRG 113 ==
LOC: ER 12:51 → ED HOLD 16:13 → EDBEDREQ 22:24 → SUR 3N 22:50
PROVIDERS: ADMIT Family Medicine; ATTEND Family Medicine
DX: H66.91 Otitis media, unspecified, right ear (principal); J18.9 Pneumonia, unspecified organism; E11.40 Type 2 diabetes mellitus with diabetic neuropathy, unspecified; Z20.822 Contact with and (suspected) exposure to COVID-19; G89.29 Other chronic pain; M54.9 Dorsalgia, unspecified; R07.2 Precordial pain; F17.210 Nicotine dependence, cigarettes, uncomplicated; R09.02 Hypoxemia; Z79.84 Long term (current) use of oral hypoglycemic drugs; Z80.0 Family history of malignant neoplasm of digestive organs; Z83.3 Family history of diabetes mellitus; Z89.422 Acquired absence of other left toe(s); Z89.421 Acquired absence of other right toe(s); Z71.6 Tobacco abuse counseling
CPT/HCPCS: 36415; 36600; 71045; 80053; 81001; 82803; 82948; 83036; 83605; 83735; 83880; 84145; 84484; 85007; 85008; 85018; 85025; 87040; 87081; 87502; 87503; 87635; 94664; 94760; 99285; A6266; G0378; J0295; J0456; J1815; J7030

== ENCOUNTER 2023-08-26 10:12 | Emergency (ER) | payer MEDICAID ==
[~2023-08-26] VITALS: Ht 162.6 cm; Wt 94.3 kg
[~2023-08-26 10:12] MED LIST changes: +HYDR50TA65 PO; +METF-436 PO
[2023-08-26 10:14] VITALS: TEMP 97.5
[2023-08-26 11:00] LABS: BASOPHILS % (AUTO) 0.6 % (0-1); EOSINOPHILS # (AUTO) 0.1 X10'3 (0-0.9); EOSINOPHILS % (AUTO) 1.3 % (0-6); HEMATOCRIT 41.4 % (42.0-52.0); HEMOGLOBIN 13.6 g/dl (14.0-17.9); LYMPHOCYTES # (AUTO) 1.5 X10'3 (1.1-4.8); LYMPHOCYTES % (AUTO) 24.7 % (21-51); MEAN CORPUSCULAR HEMOGLOBIN 30.1 PG (27.0-31.0); MEAN CORPUSCULAR HGB CONC 32.8 g/dL (33.0-36.5); MEAN CORPUSCULAR VOLUME 91.6 FL (78-98); MONOCYTES # (AUTO) 0.3 X10'3 (0-0.9); MONOCYTES % (AUTO) 5.7 % (2-12); NEUTROPHILS # (AUTO) 4.1 X10'3 (1.8-7.7); NEUTROPHILS % (AUTO) 67.7 % (42-75); PLATELET COUNT 91 X10'3 (140-440); RED BLOOD COUNT 4.52 X10'6 (4.70-6.10); RED CELL DISTRIBUTION WIDTH 13.8 % (11.5-14.5)
[2023-08-26 11:16] LABS: ALANINE AMINOTRANSFERASE 29 U/L (12-78); ALBUMIN 3.4 G/DL (3.4-5.0); ALKALINE PHOSPHATASE 125 IU/L (46-116); ANION GAP 7 (8-16); ASPARTATE AMINO TRANSFERASE 27 U/L (10-37); BILIRUBIN,TOTAL 0.4 MG/DL (0.1-1.0); BLOOD UREA NITROGEN 15 MG/DL (7-18); BUN/CREATININE RATIO 18.1 (10.0-20.0); CALCIUM 8.7 MG/DL (8.5-10.1); CHLORIDE 102 MMOL/L (99-107); CREATININE 0.83 MG/DL (0.60-1.10); GLUCOSE 251 MG/DL (70-104); POTASSIUM 4.4 MMOL/L (3.5-5.1); SODIUM 137 MMOL/L (135-145); TOTAL CARBON DIOXIDE 27.6 MMOL/L (24-32); TOTAL PROTEIN 6.9 G/DL (6.4-8.2); eCRCL 77 ML/MIN; eGFR > 90 ML/MIN
[2023-08-26] MEDS ORDERED: furosemide 20 MG/2 ML vial IV ONE (11:50)
[2023-08-26] MEDS ORDERED: FURO-150 PO (13:45)
[2023-08-26 14:45] VITALS: BP 107/66; PULSE 83; RESP 16; O2SAT 99
== END 2023-08-26 14:48 | disposition home or self-care (01) ==
LOC: ER 10:13
DX: I50.9 Heart failure, unspecified (principal); Z20.822 Contact with and (suspected) exposure to COVID-19; E11.9 Type 2 diabetes mellitus without complications
CPT/HCPCS: 36415; 71045; 80053; 82948; 83880; 84484; 85025; 87811; 93005; 96374; 99285; J1940

== ENCOUNTER 2023-09-13 09:18 | Inpatient (IN) | payer MEDICAID ==
[2023-09-13] VITALS (11 sets, daily range): BP systolic 108–111; BP diastolic 52–59; PULSE 89–100; RESP 13–18; TEMP 97.9–98.9; O2SAT 91–97
[~2023-09-13] VITALS: Ht 172.7 cm; Wt 91.8 kg
[2023-09-13 10:30] LABS: BASOPHILS % (AUTO) 0.3 % (0-1); EOSINOPHILS % (AUTO) 0.3 % (0-6); HEMATOCRIT 38.5 % (42.0-52.0); HEMOGLOBIN 12.8 g/dl (14.0-17.9); LYMPHOCYTES # (AUTO) 0.9 X10'3 (1.1-4.8); LYMPHOCYTES % (AUTO) 8.7 % (21-51); MEAN CORPUSCULAR HEMOGLOBIN 30.1 PG (27.0-31.0); MEAN CORPUSCULAR HGB CONC 33.4 g/dL (33.0-36.5); MEAN CORPUSCULAR VOLUME 90.1 FL (78-98); MEAN PLATELET VOLUME 10.2 FL (7.4-10.4); MONOCYTES # (AUTO) 0.6 X10'3 (0-0.9); MONOCYTES % (AUTO) 6.2 % (2-12); NEUTROPHILS # (AUTO) 8.4 X10'3 (1.8-7.7); NEUTROPHILS % (AUTO) 84.5 % (42-75); PLATELET COUNT 94 X10'3 (140-440); RED BLOOD COUNT 4.27 X10'6 (4.70-6.10); RED CELL DISTRIBUTION WIDTH 13.8 % (11.5-14.5)
[2023-09-13 10:38] LABS: ALANINE AMINOTRANSFERASE 20 U/L (12-78); ALBUMIN 2.8 G/DL (3.4-5.0); ALBUMIN/GLOBULIN RATIO 0.7 (1.1-1.5); ALKALINE PHOSPHATASE 115 IU/L (46-116); ANION GAP 9 (8-16); ASPARTATE AMINO TRANSFERASE 30 U/L (10-37); BILIRUBIN,TOTAL 1.3 MG/DL (0.1-1.0); BLOOD UREA NITROGEN 15 MG/DL (7-18); BUN/CREATININE RATIO 16.9 (10.0-20.0); CALCIUM 8.4 MG/DL (8.5-10.1); CHLORIDE 103 MMOL/L (99-107); CREATININE 0.89 MG/DL (0.60-1.10); GLUCOSE 228 MG/DL (70-104); POTASSIUM 3.7 MMOL/L (3.5-5.1); SODIUM 137 MMOL/L (135-145); TOTAL CARBON DIOXIDE 25.5 MMOL/L (24-32); TOTAL PROTEIN 6.9 G/DL (6.4-8.2); eCRCL 83 ML/MIN; eGFR 87 ML/MIN
[2023-09-13] MEDS ORDERED: aspirin 325mg tablet PO ONE (11:20)
[2023-09-13 12:07] LABS: D-DIMER 1.09 MG/L FEU (0-0.50)
[2023-09-13] MEDS ORDERED: magnesium 4gm in 100ml NS 100 ML IV PRN (13:05)
[2023-09-13] MEDS ORDERED: potassium Cl 20 mEq SR tablet PO PRN ×2 (13:05)
[2023-09-13] MEDS ORDERED: magnesium 2GM in 50ml NS 50 ML IV PRN (13:05)
[2023-09-13] MEDS ORDERED: magnesium hydroxide 30ml (MOM) UD suspension PO PRN (13:05)
[2023-09-13] MEDS ORDERED: potassium Cl 40MEQ/1/2NS 520ml 520 ML IV PRN (13:05)
[2023-09-13] MEDS ORDERED: ondansetron/PF 4mg/2ml inj IV PRN (13:05)
[2023-09-13] MEDS ORDERED: magnesium Cl slow-release 64mg tablet PO PRN (13:05)
[2023-09-13] MEDS ORDERED: mag hydrox/Alum hydrox/simeth 30ml oral suspension PO PRN (13:05)
[2023-09-13] MEDS ORDERED: acetaminophen 325mg tablet PO PRN (13:05)
[2023-09-13] MEDS ORDERED: MESSAGE TO PHARMACY PO ONE (13:25)
[2023-09-13] MEDS ORDERED: dextrose 50%-water 50ml dispensing syringe IV PRN ×2 (13:25)
[2023-09-13] MEDS ORDERED: DEXTROSE 15 GM of carb/4 tabs (each vial/BOTTLE has 4 tablets) PO PRN ×2 (13:25)
[2023-09-13] MEDS ORDERED: glucagon, human recombinant 1mg kit SUBCUT PRN (13:25)
[2023-09-13] MEDS ORDERED: iohexol 350MG/ML 100ml bottle IV ONE (13:29)
[2023-09-13] MEDS: guaiFENesin ER 600mg tablet PO SCH ×2 (14:07→20:07)
[2023-09-13] MEDS: furosemide 20 MG/2 ML vial IV SCH ×2 (14:07→20:07)
[2023-09-13 14:08] LABS: HEMOGLOBIN A1C 7.3 % (4.5-6.2)
[2023-09-13] MEDS: ipratropium/albuterol 3ml nebule NEB SCH ×3 (16:04→23:48)
[2023-09-13] MEDS: K and/or MAG REPLACEMENT MC SCH (20:00)
[2023-09-13] MEDS: heparin, porcine 5000 units/ml vial SQ SCH (20:00)
[2023-09-13] MEDS: docusate sod 100mg capsule PO SCH (20:07)
[2023-09-13] MEDS ORDERED: insulin glargine (Lantus) pen - multi-dose SQ SCH (21:00)
[2023-09-13] MEDS: insulin Lispro (HumaLOG) vial - multi-dose SQ SCH (21:30)
[2023-09-14] VITALS (9 sets, daily range): BP systolic 94–107; BP diastolic 53–59; PULSE 84–97; RESP 16–20; TEMP 98.2–98.6; O2SAT 90–93
[2023-09-14] MEDS: ipratropium/albuterol 3ml nebule NEB SCH ×4 (02:55→12:24)
[2023-09-14 06:02] LABS: BASOPHILS % (AUTO) 0.3 % (0-1); EOSINOPHILS % (AUTO) 0.2 % (0-6); HEMATOCRIT 34.8 % (42.0-52.0); HEMOGLOBIN 11.7 g/dl (14.0-17.9); LYMPHOCYTES # (AUTO) 1.6 X10'3 (1.1-4.8); LYMPHOCYTES % (AUTO) 15.8 % (21-51); MEAN CORPUSCULAR HEMOGLOBIN 30.5 PG (27.0-31.0); MEAN CORPUSCULAR HGB CONC 33.7 g/dL (33.0-36.5); MEAN CORPUSCULAR VOLUME 90.4 FL (78-98); MEAN PLATELET VOLUME 10.4 FL (7.4-10.4); MONOCYTES # (AUTO) 0.8 X10'3 (0-0.9); MONOCYTES % (AUTO) 7.9 % (2-12); NEUTROPHILS # (AUTO) 7.7 X10'3 (1.8-7.7); NEUTROPHILS % (AUTO) 75.8 % (42-75); PLATELET COUNT 92 X10'3 (140-440); RED BLOOD COUNT 3.85 X10'6 (4.70-6.10); RED CELL DISTRIBUTION WIDTH 13.8 % (11.5-14.5); WHITE BLOOD COUNT 10.1 X10'3 (4.5-11.0)
[2023-09-14 06:32] LABS: ALANINE AMINOTRANSFERASE 29 U/L (12-78); ALBUMIN 2.7 G/DL (3.4-5.0); ALBUMIN/GLOBULIN RATIO 0.7 (1.1-1.5); ALKALINE PHOSPHATASE 123 IU/L (46-116); ANION GAP 9 (8-16); ASPARTATE AMINO TRANSFERASE 30 U/L (10-37); BILIRUBIN,TOTAL 0.9 MG/DL (0.1-1.0); BLOOD UREA NITROGEN 15 MG/DL (7-18); BUN/CREATININE RATIO 18.1 (10.0-20.0); CALCIUM 8.3 MG/DL (8.5-10.1); CHLORIDE 99 MMOL/L (99-107); CREATININE 0.83 MG/DL (0.60-1.10); GLUCOSE 181 MG/DL (70-104); POTASSIUM 3.5 MMOL/L (3.5-5.1); SODIUM 133 MMOL/L (135-145); TOTAL CARBON DIOXIDE 25.3 MMOL/L (24-32); TOTAL PROTEIN 6.6 G/DL (6.4-8.2); eCRCL 89 ML/MIN; eGFR > 90 ML/MIN
[2023-09-14] MEDS: heparin, porcine 5000 units/ml vial SQ SCH (06:56)
[2023-09-14] MEDS: guaiFENesin ER 600mg tablet PO SCH (07:01)
[2023-09-14] MEDS: furosemide 20 MG/2 ML vial IV SCH (07:01)
[2023-09-14] MEDS: docusate sod 100mg capsule PO SCH (07:02)
[2023-09-14] MEDS: K and/or MAG REPLACEMENT MC SCH (08:00)
[2023-09-14] MEDS: insulin Lispro (HumaLOG) vial - multi-dose SQ SCH (09:16)
[2023-09-14] MEDS ORDERED: pneumococcal 23-VAL P-sac vacc 25 mcg/0.5ml vial IMVAC ONE (12:40)
[2023-09-14] MEDS ORDERED: FURO-150 PO (12:48)
[2023-09-14] MEDS ORDERED: METO-395 PO (12:48)
[2023-09-14] MEDS ORDERED: LISI2.5T14 PO (12:48)
[2023-09-14] MEDS ORDERED: FLU VACC QS2023-24(6MOS UP)/PF 60 MCG/0.5 ML SYRINGE IM ONE (13:00)
[2023-09-14] MEDS ORDERED: MESSAGE TO NURSING IV SCH (13:45)
== END 2023-09-14 13:30 | disposition home or self-care (01) | DRG 194 ==
LOC: ER 09:19 → ED HOLD 13:06 → EDBEDREQ 14:10 → ORTHO 4S 14:58
PROVIDERS: ADMIT Internal Medicine; ATTEND Internal Medicine
PROC: B32T1ZZ Computerized Tomography (CT Scan) of Left Pulmonary Artery using Low Osmolar Contrast (ICD-10-PCS; principal; 2023-09-13)
PROC: B3201ZZ Computerized Tomography (CT Scan) of Thoracic Aorta using Low Osmolar Contrast (ICD-10-PCS; 2023-09-13)
PROC: B32S1ZZ Computerized Tomography (CT Scan) of Right Pulmonary Artery using Low Osmolar Contrast (ICD-10-PCS; 2023-09-13)
DX: I50.23 Acute on chronic systolic (congestive) heart failure (principal); J18.9 Pneumonia, unspecified organism; J44.0 Chronic obstructive pulmonary disease with (acute) lower respiratory infection; E11.9 Type 2 diabetes mellitus without complications; M54.9 Dorsalgia, unspecified; G89.29 Other chronic pain; R79.89 Other specified abnormal findings of blood chemistry; F11.20 Opioid dependence, uncomplicated; Z79.899 Other long term (current) drug therapy; Z79.84 Long term (current) use of oral hypoglycemic drugs; Z80.0 Family history of malignant neoplasm of digestive organs; Z83.3 Family history of diabetes mellitus
CPT/HCPCS: 36415; 71045; 71275; 80053; 82948; 83036; 83880; 84484; 85025; 85379; 87081; 90686; 90732; 93306; 94640; 94760; 99285; A4615; G0378; J1815; J1940; J3490; Q9967

== ENCOUNTER 2024-05-20 14:07 | Inpatient (IN) | payer BC, MEDICAID ==
[~2024-05-20] VITALS: Ht 152.4 cm; Wt 91.0 kg
[~2024-05-20 14:07] MED LIST changes: +FURO-150 PO; +LISI2.5T14 PO; +METO-395 PO
[2024-05-20 15:05] LABS: BASOPHILS # (AUTO) 0.1 X10'3 (0-0.2); BASOPHILS % (AUTO) 0.6 % (0-1); EOSINOPHILS # (AUTO) 0.2 X10'3 (0-0.9); EOSINOPHILS % (AUTO) 1.7 % (0-6); HEMATOCRIT 40.4 % (42.0-52.0); HEMOGLOBIN 13.5 g/dl (14.0-17.9); LYMPHOCYTES # (AUTO) 1.7 X10'3 (1.1-4.8); MEAN CORPUSCULAR HEMOGLOBIN 30.9 PG (27.0-31.0); MEAN CORPUSCULAR HGB CONC 33.5 g/dL (33.0-36.5); MEAN CORPUSCULAR VOLUME 92.2 FL (78-98); MONOCYTES # (AUTO) 0.6 X10'3 (0-0.9); MONOCYTES % (AUTO) 6.4 % (2-12); NEUTROPHILS % (AUTO) 73.3 % (42-75); PLATELET COUNT 128 X10'3 (140-440); RED BLOOD COUNT 4.38 X10'6 (4.70-6.10); RED CELL DISTRIBUTION WIDTH 13.8 % (11.5-14.5); WHITE BLOOD COUNT 9.6 X10'3 (4.5-11.0)
[2024-05-20 15:27] LABS: ALBUMIN 3.5 G/DL (3.4-5.0); ANION GAP 8 (8-16); BLOOD UREA NITROGEN 15 MG/DL (7-18); CALCIUM 8.8 MG/DL (8.5-10.1); CHLORIDE 101 MMOL/L (99-107); GLUCOSE 132 MG/DL (70-104); MAGNESIUM 1.8 MG/DL (1.5-2.4); POTASSIUM 4.3 MMOL/L (3.5-5.1); SODIUM 134 MMOL/L (135-145); TOTAL CARBON DIOXIDE 25.4 MMOL/L (24-32); eCRCL 53 ML/MIN; eGFR 75 ML/MIN
[2024-05-20] MEDS: piperacillin/tazo 4.5gm/100ml 100 ML IV ONE (15:46)
[2024-05-20] MEDS ORDERED: acetaminophen 325mg tablet PO PRN (17:20)
[2024-05-20] MEDS ORDERED: diphenhydrAMINE 25mg capsule PO PRN (17:20)
[2024-05-20] MEDS ORDERED: ipratropium/albuterol 3ml nebule NEB PRN (17:20)
[2024-05-20] MEDS ORDERED: HYDROcodone/acetaminophen 5mg/325mg tablet PO PRN (17:20)
[2024-05-20] MEDS ORDERED: acetaminophen 650mg rectal suppository RC PRN (17:20)
[2024-05-20] MEDS ORDERED: morphine 2 MG/ML inj. syringe IV PRN ×2 (17:20)
[2024-05-20] MEDS ORDERED: HYDROcodone/acetaminophen 10/325mg tab PO PRN (17:20)
[2024-05-20] MEDS ORDERED: magnesium hydroxide 30ml (MOM) UD suspension PO PRN (17:20)
[2024-05-20] MEDS ORDERED: ondansetron/PF 4mg/2ml inj IV PRN (17:20)
[2024-05-20] MEDS ORDERED: diphenhydrAMINE 50 mg/ml inj IV PRN (17:20)
[2024-05-20] MEDS ORDERED: bisacodyl 10mg suppository rectal RC PRN (17:20)
[2024-05-20] MEDS ORDERED: ondansetron 4mg rapidly disintigrating tab PO PRN (17:20)
[2024-05-20] MEDS ORDERED: mag hydrox/Alum hydrox/simeth 30ml oral suspension PO PRN (17:20)
[2024-05-20 17:51] LABS: BILIRUBIN,URINE NEGATIVE (Neg); CLARITY,URINE CLEAR (Clear); COLOR,URINE YELLOW (Yellow); GLUCOSE, URINE NEGATIVE (Neg); KETONES,URINE NEGATIVE (Neg); LEUKOCYTE ESTERASE ,URINE NEGATIVE (Neg); NITRITES, URINE NEGATIVE (Neg); OCCULT BLOOD,URINE TRACE-INTACT (Neg); PROTEIN,URINE NEGATIVE (Neg); UROBILINOGEN,URINE 0.2 E.U/dL (0.2-1.0)
[2024-05-20 17:54] LABS: UA COLLECTION TYPE CLN CATCH MIDSTREAM
[2024-05-20 17:56] LABS: BACTERIA,URINE NONE SEEN /HPF (Neg); RBC,URINE 0-2 /HPF (0-2); SQUAMOUS EPITHELIAL CELL,UR NONE SEEN /LPF (FEW); WBC,URINE NONE SEEN /HPF (0-4)
[2024-05-20 17:59] LABS: APTT 26 SECONDS (22-32)
[2024-05-20 18:07] LABS: PHOSPHORUS 3.6 MG/DL (2.3-4.5)
[2024-05-20] MEDS ORDERED: DEXTROSE 15 GM of carb/4 tabs (each vial/BOTTLE has 4 tablets) PO PRN ×2 (18:15)
[2024-05-20] MEDS ORDERED: dextrose 50%-water 50ml dispensing syringe IV PRN ×2 (18:15)
[2024-05-20] MEDS ORDERED: glucagon, human recombinant 1mg kit SUBCUT PRN (18:15)
[2024-05-20] MEDS: piperacillin/tazo 4.5gm/100ml 100 ML IV SCH (20:00)
[2024-05-20] MEDS: docusate sod 100mg capsule PO SCH (20:06)
[2024-05-20] MEDS: normal saline 1000ml 1,000 ML IV SCH (20:06)
[2024-05-20] MEDS: heparin, porcine 5000 units/ml vial SQ SCH (20:06)
[2024-05-20] MEDS: INSULIN LISPRO 100 UNIT/ML INSULN.PEN MULTI-DOSE SQ SCH (20:08)
[2024-05-20] MEDS: insulin glargine (Lantus) pen - multi-dose SQ SCH (20:35)
[2024-05-20] MEDS ORDERED: temazepam 15mg capsule PO PRN (21:00)
[2024-05-20] MEDS ORDERED: SACU1TAB7 PO (22:31)
[2024-05-20] MEDS ORDERED: EMPA25TA PO (22:31)
[2024-05-20] MEDS ORDERED: SPIR25TA5 PO (22:31)
[2024-05-21 03:02] LABS: ALANINE AMINOTRANSFERASE 21 U/L (12-78); ALBUMIN 2.9 G/DL (3.4-5.0); ALBUMIN/GLOBULIN RATIO 0.8 (1.1-1.5); ALKALINE PHOSPHATASE 94 IU/L (46-116); ANION GAP 5 (8-16); ASPARTATE AMINO TRANSFERASE 11 U/L (10-37); BASOPHILS # (AUTO) 0.1 X10'3 (0-0.2); BASOPHILS % (AUTO) 0.8 % (0-1); BILIRUBIN,TOTAL 0.4 MG/DL (0.1-1.0); BLOOD UREA NITROGEN 17 MG/DL (7-18); BUN/CREATININE RATIO 17.9 (10.0-20.0); CALCIUM 8.8 MG/DL (8.5-10.1); CHLORIDE 105 MMOL/L (99-107); CHOL/HDL RATIO 2.3 (0.00-4.99); CHOLESTEROL 93 MG/DL (0-200); CREATININE 0.95 MG/DL (0.60-1.10); EOSINOPHILS # (AUTO) 0.2 X10'3 (0-0.9); EOSINOPHILS % (AUTO) 2.9 % (0-6); GLUCOSE 120 MG/DL (70-104); HDL CHOLESTEROL 40 MG/DL (35-60); HEMATOCRIT 36.9 % (42.0-52.0); HEMOGLOBIN 12.3 g/dl (14.0-17.9); LDL CHOLESTEROL 50 MG/DL (50-100); LYMPHOCYTES # (AUTO) 2.3 X10'3 (1.1-4.8); LYMPHOCYTES % (AUTO) 31.8 % (21-51); MEAN CORPUSCULAR HEMOGLOBIN 30.6 PG (27.0-31.0); MEAN CORPUSCULAR HGB CONC 33.2 g/dL (33.0-36.5); MEAN PLATELET VOLUME 9.3 FL (7.4-10.4); MONOCYTES # (AUTO) 0.6 X10'3 (0-0.9); MONOCYTES % (AUTO) 7.6 % (2-12); NEUTROPHILS # (AUTO) 4.1 X10'3 (1.8-7.7); NEUTROPHILS % (AUTO) 56.9 % (42-75); PLATELET COUNT 116 X10'3 (140-440); POTASSIUM 3.9 MMOL/L (3.5-5.1); RED BLOOD COUNT 4.01 X10'6 (4.70-6.10); RED CELL DISTRIBUTION WIDTH 13.5 % (11.5-14.5); SODIUM 138 MMOL/L (135-145); TOTAL CARBON DIOXIDE 28.1 MMOL/L (24-32); TOTAL PROTEIN 6.4 G/DL (6.4-8.2); TRIGLYCERIDES 57 MG/DL (20-135); WHITE BLOOD COUNT 7.2 X10'3 (4.5-11.0); eCRCL 56 ML/MIN; eGFR 80 ML/MIN
[2024-05-21] MEDS ORDERED: vancomycin/NS 1 GM ADD-VANTAGE 250 ML IV SCH (08:00)
[2024-05-21] MEDS: pantoprazole 40mg Tablet.DR PO SCH (09:38)
[2024-05-21 11:00] VITALS: BP 116/55; PULSE 72; RESP 18; TEMP 97.9; O2SAT 98
[2024-05-21 11:28] VITALS: PULSE 67; RESP 20; O2SAT 98
[2024-05-21] MEDS ORDERED: hydrOXYzine 25 MG tablet PO PRN (11:45)
[2024-05-21] MEDS: buprenorphine/naloxone 8MG-2MG SUBlingual film SL SCH (12:35)
[2024-05-21 15:00] VITALS: BP 120/60; PULSE 75; RESP 16; TEMP 98.2; O2SAT 98
[2024-05-21 18:00] VITALS: BP 112/59; PULSE 68; RESP 20; TEMP 97.2; O2SAT 99
[2024-05-21 19:55] VITALS: PULSE 70; RESP 16; O2SAT 98
[2024-05-21] MEDS: metoprolol succinate 25mg (24-HOUR) SR. Tablet PO SCH (21:11)
[2024-05-21] MEDS: vancomycin/NS 1 GM ADD-VANTAGE 250 ML IV SCH (21:14)
[2024-05-21 22:00] VITALS: BP 103/48; PULSE 77; RESP 18; TEMP 97.8; O2SAT 96
[2024-05-22] VITALS (9 sets, daily range): BP systolic 101–129; BP diastolic 49–73; PULSE 70–103; RESP 14–22; TEMP 97.8–101.1; O2SAT 96–100
[2024-05-22 06:01] LABS: BASOPHILS # (AUTO) 0.1 X10'3 (0-0.2); EOSINOPHILS # (AUTO) 0.1 X10'3 (0-0.9); EOSINOPHILS % (AUTO) 2.6 % (0-6); HEMATOCRIT 38.7 % (42.0-52.0); HEMOGLOBIN 12.7 g/dl (14.0-17.9); LYMPHOCYTES # (AUTO) 1.3 X10'3 (1.1-4.8); LYMPHOCYTES % (AUTO) 25.3 % (21-51); MEAN CORPUSCULAR HEMOGLOBIN 30.4 PG (27.0-31.0); MEAN CORPUSCULAR HGB CONC 32.8 g/dL (33.0-36.5); MEAN CORPUSCULAR VOLUME 92.7 FL (78-98); MEAN PLATELET VOLUME 9.1 FL (7.4-10.4); MONOCYTES # (AUTO) 0.4 X10'3 (0-0.9); MONOCYTES % (AUTO) 7.4 % (2-12); NEUTROPHILS # (AUTO) 3.3 X10'3 (1.8-7.7); NEUTROPHILS % (AUTO) 63.7 % (42-75); PLATELET COUNT 99 X10'3 (140-440); RED BLOOD COUNT 4.18 X10'6 (4.70-6.10); RED CELL DISTRIBUTION WIDTH 13.7 % (11.5-14.5); WHITE BLOOD COUNT 5.2 X10'3 (4.5-11.0)
[2024-05-22 06:17] LABS: ALANINE AMINOTRANSFERASE 20 U/L (12-78); ALBUMIN 2.7 G/DL (3.4-5.0); ALBUMIN/GLOBULIN RATIO 0.8 (1.1-1.5); ALKALINE PHOSPHATASE 93 IU/L (46-116); ANION GAP 6 (8-16); ASPARTATE AMINO TRANSFERASE 13 U/L (10-37); BILIRUBIN,TOTAL 0.3 MG/DL (0.1-1.0); BLOOD UREA NITROGEN 15 MG/DL (7-18); BUN/CREATININE RATIO 19.5 (10.0-20.0); CALCIUM 8.8 MG/DL (8.5-10.1); CHLORIDE 105 MMOL/L (99-107); CREATININE 0.77 MG/DL (0.60-1.10); GLUCOSE 146 MG/DL (70-104); SODIUM 139 MMOL/L (135-145); TOTAL CARBON DIOXIDE 27.8 MMOL/L (24-32); TOTAL PROTEIN 6.3 G/DL (6.4-8.2); eCRCL 69 ML/MIN; eGFR > 90 ML/MIN
[2024-05-22] MEDS: nicotine 21mg patch - 24 hr TD SCH (08:00)
[2024-05-22] MEDS: lisinopril 2.5mg tablet PO SCH (08:24)
[2024-05-22 12:15] LABS: OCCULT BLOOD STOOL NEGATIVE (Neg)
[2024-05-22] MEDS: acetaminophen 325mg tablet PO PRN (16:53)
[2024-05-22] MEDS: vancomycin/NS 1 GM ADD-VANTAGE 250 ML IV SCH (19:38)
[2024-05-23 02:00] VITALS: BP 101/55; PULSE 78; RESP 17; TEMP 98.1; O2SAT 97
[2024-05-23 03:12] VITALS: PULSE 90; RESP 16; O2SAT 97
[2024-05-23 07:59] LABS: BASOPHILS % (AUTO) 0.6 % (0-1); EOSINOPHILS # (AUTO) 0.1 X10'3 (0-0.9); EOSINOPHILS % (AUTO) 1.4 % (0-6); HEMOGLOBIN 11.8 g/dl (14.0-17.9); LYMPHOCYTES # (AUTO) 1.2 X10'3 (1.1-4.8); LYMPHOCYTES % (AUTO) 15.6 % (21-51); MEAN CORPUSCULAR HEMOGLOBIN 30.2 PG (27.0-31.0); MEAN CORPUSCULAR HGB CONC 32.8 g/dL (33.0-36.5); MEAN CORPUSCULAR VOLUME 92.2 FL (78-98); MEAN PLATELET VOLUME 8.9 FL (7.4-10.4); MONOCYTES # (AUTO) 0.7 X10'3 (0-0.9); MONOCYTES % (AUTO) 9.4 % (2-12); NEUTROPHILS # (AUTO) 5.5 X10'3 (1.8-7.7); PLATELET COUNT 104 X10'3 (140-440); RED CELL DISTRIBUTION WIDTH 13.8 % (11.5-14.5); WHITE BLOOD COUNT 7.5 X10'3 (4.5-11.0)
[2024-05-23 08:00] VITALS: BP 97/46; PULSE 70; RESP 15; TEMP 98.5; O2SAT 96
[2024-05-23] MEDS: VANCOMYCIN LEVEL IV ONE (08:09)
[2024-05-23 08:17] LABS: ALANINE AMINOTRANSFERASE 13 U/L (12-78); ALBUMIN 2.4 G/DL (3.4-5.0); ALBUMIN/GLOBULIN RATIO 0.7 (1.1-1.5); ALKALINE PHOSPHATASE 82 IU/L (46-116); ANION GAP 8 (8-16); ASPARTATE AMINO TRANSFERASE 10 U/L (10-37); BILIRUBIN,TOTAL 0.5 MG/DL (0.1-1.0); BLOOD UREA NITROGEN 13 MG/DL (7-18); BUN/CREATININE RATIO 17.3 (10.0-20.0); CALCIUM 8.3 MG/DL (8.5-10.1); CHLORIDE 106 MMOL/L (99-107); CREATININE 0.75 MG/DL (0.60-1.10); GLUCOSE 136 MG/DL (70-104); POTASSIUM 3.6 MMOL/L (3.5-5.1); SODIUM 138 MMOL/L (135-145); TOTAL CARBON DIOXIDE 24.5 MMOL/L (24-32); TOTAL PROTEIN 5.9 G/DL (6.4-8.2); VANCOMYCIN,TROUGH 9.3 ug/mL (10.0-20.0); eCRCL 71 ML/MIN; eGFR > 90 ML/MIN
[2024-05-23 11:40] VITALS: PULSE 66; RESP 16; O2SAT 95
[2024-05-23 12:00] VITALS: BP 103/47; PULSE 68; RESP 18; TEMP 98; O2SAT 96
[2024-05-23 15:00] VITALS: BP 99/48; PULSE 74; RESP 18; TEMP 98.1; O2SAT 98
[2024-05-23] MEDS ORDERED: AMOX-580 PO (16:21)
[2024-05-23] MEDS ORDERED: VANCOMYCIN 1,500MG in NS 300ml IVPB IV SCH (20:00)
[2024-05-25] MEDS ORDERED: VANCOMYCIN LEVEL IV ONE (07:30)
== END 2024-05-23 17:15 | disposition home or self-care (01) | DRG 603 ==
LOC: ER 14:07 → ED HOLD 17:28 → PCU 3S 05-21 07:25
PROVIDERS: ADMIT Family Medicine; ATTEND Family Medicine
DX: L03.115 Cellulitis of right lower limb (principal); I50.22 Chronic systolic (congestive) heart failure; E87.1 Hypo-osmolality and hyponatremia; I42.7 Cardiomyopathy due to drug and external agent; M86.8X7 Other osteomyelitis, ankle and foot; M54.9 Dorsalgia, unspecified; S91.301A Unspecified open wound, right foot, initial encounter; X58.XXXA Exposure to other specified factors, initial encounter; G89.4 Chronic pain syndrome; I11.0 Hypertensive heart disease with heart failure; F19.10 Other psychoactive substance abuse, uncomplicated; Z20.822 Contact with and (suspected) exposure to COVID-19; D69.6 Thrombocytopenia, unspecified; E66.01 Morbid (severe) obesity due to excess calories; F17.200 Nicotine dependence, unspecified, uncomplicated; E11.69 Type 2 diabetes mellitus with other specified complication; Z79.84 Long term (current) use of oral hypoglycemic drugs; Z68.39 Body mass index [BMI] 39.0-39.9, adult; Z79.899 Other long term (current) drug therapy; Z80.0 Family history of malignant neoplasm of digestive organs; Y93.89 Activity, other specified; Y92.89 Other specified places as the place of occurrence of the external cause; Y99.8 Other external cause status
CPT/HCPCS: 36415; 71045; 71250; 73630; 73718; 80048; 80053; 80061; 80202; 81001; 82272; 82948; 83036; 83605; 83735; 83880; 84100; 84145; 84484; 85025; 85610; 85730; 87040; 87070; 87081; 87811; 93005; 93922; 94760; 97161; 97530; 99285; A6258; A6266; A6446; A6449; G0378; J1644; J1815; J2543; J3370; J7030; J7040

== ENCOUNTER 2024-09-30 09:22 | Inpatient (IN) | payer BC ==
[~2024-09-30] VITALS: Ht 170.2 cm; Wt 90.9 kg
[~2024-09-30 09:22] MED LIST changes: +EMPA25TA PO; +SACU1TAB7 PO; +SPIR25TA5 PO
[2024-09-30 10:22] LABS: EOSINOPHILS # (AUTO) 0.1 X10'3 (0-0.9); MEAN CORPUSCULAR HGB CONC 33.4 g/dL (33.0-36.5); MEAN PLATELET VOLUME 10.6 FL (7.4-10.4); MONOCYTES # (AUTO) 0.3 X10'3 (0-0.9); PLATELET COUNT 63 X10'3 (140-440)
[2024-09-30 10:24] LABS: BASOPHILS % (AUTO) 0.5 % (0-1); EOSINOPHILS % (AUTO) 1.2 % (0-6); HEMATOCRIT 37.5 % (42.0-52.0); HEMOGLOBIN 12.5 g/dl (14.0-17.9); LYMPHOCYTES # (AUTO) 1.1 X10'3 (1.1-4.8); LYMPHOCYTES % (AUTO) 19.5 % (21-51); MEAN CORPUSCULAR HEMOGLOBIN 31.4 PG (27.0-31.0); MEAN CORPUSCULAR VOLUME 93.9 FL (78-98); MONOCYTES % (AUTO) 6.2 % (2-12); NEUTROPHILS % (AUTO) 72.6 % (42-75); RED BLOOD COUNT 3.99 X10'6 (4.70-6.10); RED CELL DISTRIBUTION WIDTH 14.7 % (11.5-14.5); WHITE BLOOD COUNT 5.5 X10'3 (4.5-11.0)
[2024-09-30 10:37] LABS: ALANINE AMINOTRANSFERASE 16 U/L (12-78); ALBUMIN 3.5 G/DL (3.4-5.0); ALBUMIN/GLOBULIN RATIO 0.9 (1.1-1.5); ALKALINE PHOSPHATASE 126 IU/L (46-116); ANION GAP 10 (8-16); ASPARTATE AMINO TRANSFERASE 22 U/L (10-37); BILIRUBIN,TOTAL 0.5 MG/DL (0.1-1.0); BLOOD UREA NITROGEN 17 MG/DL (7-18); BUN/CREATININE RATIO 17.5 (10.0-20.0); CALCIUM 8.7 MG/DL (8.5-10.1); CHLORIDE 104 MMOL/L (99-107); CREATININE 0.97 MG/DL (0.60-1.10); GLUCOSE 195 MG/DL (70-104); POTASSIUM 4.4 MMOL/L (3.5-5.1); SODIUM 138 MMOL/L (135-145); TOTAL CARBON DIOXIDE 24.5 MMOL/L (24-32); TOTAL PROTEIN 7.2 G/DL (6.4-8.2); eCRCL 73 ML/MIN; eGFR 78 ML/MIN
[2024-09-30 10:45] LABS: PRO BRAIN NATRIURETIC PEPTIDE 2229 PG/ML (0-125)
[2024-09-30 11:19] LABS: LARGE PLATELETS FEW; PLATELET ESTIMATE DECREASED
[2024-09-30] MEDS ORDERED: FURO20TA4 PO (11:29)
[2024-09-30] MEDS ORDERED: IBUP-1985 PO (11:31)
[2024-09-30] MEDS ORDERED: ESCI-8 PO (11:31)
[2024-09-30] MEDS ORDERED: potassium Cl 40MEQ/1/2NS 520ml 520 ML IV PRN (12:35)
[2024-09-30] MEDS ORDERED: magnesium Cl slow-release 64mg tablet PO PRN (12:35)
[2024-09-30] MEDS ORDERED: METO-539 PO (12:35)
[2024-09-30] MEDS ORDERED: SERT25TA PO (12:35)
[2024-09-30] MEDS ORDERED: potassium Cl 20 mEq SR tablet PO PRN ×2 (12:35)
[2024-09-30] MEDS ORDERED: SEMA0.258 SQ (12:35)
[2024-09-30] MEDS ORDERED: magnesium sulf-water 4G/100mL 100 ML IV PRN (12:35)
[2024-09-30] MEDS: PERFLUTREN PROTEIN-A MICROSPHR (Optison) 0.22 MG/ML 3ML VIAL IV ONE (12:35)
[2024-09-30] MEDS ORDERED: acetaminophen 325mg tablet PO PRN (12:35)
[2024-09-30] MEDS ORDERED: ondansetron/PF 4mg/2ml inj IV PRN (12:35)
[2024-09-30] MEDS ORDERED: magnesium sulf-water 2g/50mL 50 ML IV PRN (12:35)
[2024-09-30] MEDS ORDERED: dextrose 50%-water 50ml dispensing syringe IV PRN ×2 (12:40)
[2024-09-30] MEDS ORDERED: DEXTROSE 15 GM of carb/4 tabs (each vial/BOTTLE has 4 tablets) PO PRN ×2 (12:40)
[2024-09-30] MEDS ORDERED: glucagon, human recombinant 1mg kit SUBCUT PRN (12:40)
[2024-09-30] MEDS: buprenorphine/naloxone 8MG-2MG SUBlingual film SL SCH (13:46)
[2024-09-30] MEDS: furosemide 10 MG/1 ML 10ml inj IV ONE (13:48)
[2024-09-30 14:11] LABS: HEMOGLOBIN A1C 7.4 % (4.5-6.2)
[2024-09-30] MEDS: INSULIN LISPRO 100 UNIT/ML INSULN.PEN MULTI-DOSE SQ SCH (17:00)
[2024-09-30 17:59] LABS: BILIRUBIN,URINE NEGATIVE (Neg); CLARITY,URINE CLEAR (Clear); COLOR,URINE YELLOW (Yellow); GLUCOSE, URINE NEGATIVE (Neg); KETONES,URINE NEGATIVE (Neg); LEUKOCYTE ESTERASE ,URINE NEGATIVE (Neg); NITRITES, URINE NEGATIVE (Neg); OCCULT BLOOD,URINE NEGATIVE (Neg); PH,URINE 6.5 (4.8-8.0); PROTEIN,URINE NEGATIVE (Neg); UROBILINOGEN,URINE 0.2 E.U/dL (0.2-1.0)
[2024-09-30 18:09] LABS: URINE AMPHETAMINE SCREEN NEGATIVE (Neg); URINE BARBITUATE SCREEN NEGATIVE (Neg); URINE BENZODIAZEPINES SCREEN NEGATIVE (Neg); URINE CANNABINOID SCREEN NEGATIVE (Neg); URINE COCAINE SCREEN NEGATIVE (Neg); URINE METHADONE SCREEN NEGATIVE (Neg); URINE OPIATE SCREEN NEGATIVE (Neg); URINE PHENCYCLIDINE SCREEN NEGATIVE (Neg)
[2024-09-30 18:11] LABS: UA COLLECTION TYPE NON-SPECIFIED
[2024-09-30] MEDS: K and/or MAG REPLACEMENT MC SCH (20:00)
[2024-09-30] MEDS ORDERED: docusate sod 100mg capsule PO SCH (20:00)
[2024-09-30] MEDS: insulin glargine (Lantus) pen - multi-dose SQ SCH (21:00)
[2024-09-30] MEDS: furosemide 40mg/4ml inj IV SCH (21:40)
[2024-09-30] MEDS: sacubitril/valsartan 49mg-51mg tablet PO SCH (21:55)
[2024-09-30 22:00] VITALS: BP 140/81; PULSE 80; RESP 12; TEMP 96.7; O2SAT 97
[2024-10-01 02:00] VITALS: BP 114/58; PULSE 66; RESP 12; TEMP 97.6; O2SAT 97
[2024-10-01 06:00] VITALS: BP 100/54; PULSE 69; RESP 12; TEMP 96.7; O2SAT 92
[2024-10-01 07:21] LABS: EOSINOPHILS # (AUTO) 0.1 X10'3 (0-0.9); HEMOGLOBIN 12.5 g/dl (14.0-17.9); LYMPHOCYTES # (AUTO) 1.3 X10'3 (1.1-4.8); MEAN CORPUSCULAR VOLUME 93.4 FL (78-98); MONOCYTES # (AUTO) 0.4 X10'3 (0-0.9); NEUTROPHILS # (AUTO) 2.8 X10'3 (1.8-7.7); PLATELET COUNT 66 X10'3 (140-440); WHITE BLOOD COUNT 4.6 X10'3 (4.5-11.0)
[2024-10-01 07:23] LABS: BASOPHILS # (AUTO) 0.1 X10'3 (0-0.2); BASOPHILS % (AUTO) 1.4 % (0-1); EOSINOPHILS % (AUTO) 2.2 % (0-6); HEMATOCRIT 37.6 % (42.0-52.0); LYMPHOCYTES % (AUTO) 28.6 % (21-51); MEAN CORPUSCULAR HEMOGLOBIN 31.1 PG (27.0-31.0); MEAN CORPUSCULAR HGB CONC 33.3 g/dL (33.0-36.5); MEAN PLATELET VOLUME 10.2 FL (7.4-10.4); MONOCYTES % (AUTO) 7.7 % (2-12); NEUTROPHILS % (AUTO) 60.1 % (42-75); RED BLOOD COUNT 4.02 X10'6 (4.70-6.10); RED CELL DISTRIBUTION WIDTH 14.8 % (11.5-14.5)
[2024-10-01 08:00] VITALS: RESP 12
[2024-10-01] MEDS: metoprolol succinate 25mg (24-HOUR) SR. Tablet PO SCH (08:00)
[2024-10-01 08:53] LABS: ALBUMIN 3.2 G/DL (3.4-5.0); ANION GAP 5 (8-16); BLOOD UREA NITROGEN 18 MG/DL (7-18); BUN/CREATININE RATIO 19.8 (10.0-20.0); CALCIUM 8.7 MG/DL (8.5-10.1); CHLORIDE 105 MMOL/L (99-107); CHOL/HDL RATIO 2.8 (0.00-4.99); CHOLESTEROL 126 MG/DL (0-200); CREATININE 0.91 MG/DL (0.60-1.10); GLUCOSE 107 MG/DL (70-104); HDL CHOLESTEROL 45 MG/DL (35-60); LDL CHOLESTEROL 74 MG/DL (50-100); MAGNESIUM 1.9 MG/DL (1.5-2.4); POTASSIUM 4.2 MMOL/L (3.5-5.1); SODIUM 141 MMOL/L (135-145); TRIGLYCERIDES 184 MG/DL (20-135); eCRCL 78 ML/MIN; eGFR 84 ML/MIN
[2024-10-01] MEDS: spironolactone 25 MG tablet PO SCH (09:02)
[2024-10-01] MEDS: ESCITALOPRAM 10 mg tablet 10 MG TABLET PO SCH (09:03)
[2024-10-01] MEDS: aspirin 81mg tab.chew PO SCH (09:03)
[2024-10-01] MEDS: atorvastatin 20mg tablet PO SCH (09:03)
[2024-10-01] MEDS: sertraline 25mg tablet PO SCH (09:03)
[2024-10-01 11:00] VITALS: BP 102/42; PULSE 100; RESP 14; TEMP 97; O2SAT 92
[2024-10-01] MEDS ORDERED: ROSU20TA98 PO (12:12)
[2024-10-01] MEDS ORDERED: FURO20TA4 PO (12:12)
[2024-10-01] MEDS ORDERED: ASPI81TA53 PO (12:12)
[2024-10-01] MEDS ORDERED: EMPA10TA PO (12:12)
[2024-10-02] MEDS ORDERED: EMPAGLIFLOZIN 10 MG TABLET PO SCH (08:00)
== END 2024-10-01 14:27 | disposition home or self-care (01) | DRG 282 ==
LOC: ER 09:23 → ED HOLD 12:08 → PCU 3S 22:00
PROVIDERS: ADMIT Internal Medicine; ATTEND Internal Medicine
DX: I50.23 Acute on chronic systolic (congestive) heart failure (principal); I21.A1 Myocardial infarction type 2; E11.9 Type 2 diabetes mellitus without complications; G89.29 Other chronic pain; M54.9 Dorsalgia, unspecified; D69.6 Thrombocytopenia, unspecified; Z79.899 Other long term (current) drug therapy; Z80.0 Family history of malignant neoplasm of digestive organs; Z83.3 Family history of diabetes mellitus; Z91.148 Patient's other noncompliance with medication regimen for other reason
CPT/HCPCS: 36415; 71045; 71046; 80048; 80053; 80061; 80305; 81003; 82948; 83036; 83735; 83880; 84484; 85008; 85025; 87081; 93005; 93306; 96374; 99285; G0378; J1815; J1940